=== PATIENT | female | born 1970 | race American Indian/Alaskan Native ===

== ENCOUNTER 2016-08-02 23:55 | Emergency (ER) | payer SELFPAY ==
[2016-08-03 03:55] LABS: Hematocrit 41.5 % (30.3-42.9); Hemoglobin 13.3 gm/dl (10.1-14.3); Mean Corpuscular HGB Conc 32 % (30-34); Mean Corpuscular Hemoglobin 28 pg (28-32); Mean Corpuscular Volume 86 fl (79-97); Platelet Count 321 K/mm3 (140-440); Red Blood Count 4.81 M/mm3 (3.65-5.03); Red Cell Distribution Width 14.4 % (13.2-15.2); White Blood Count 9.4 K/mm3 (4.5-11.0)
[2016-08-03 04:19] LABS: Anion Gap 23 mmol/L; Blood Urea Nitrogen 5 mg/dL (7-17); Calcium 9.1 mg/dL (8.4-10.2); Carbon Dioxide 21 mmol/L (22-30); Chloride 93.7 mmol/L (98-107); Glucose 284 mg/dL (65-100); Potassium 3.7 mmol/L (3.6-5.0); Sodium 134 mmol/L (137-145)
[2016-08-03] MEDS ORDERED: NORCO 5/325 PO ONE (04:42)
--- NOTE | 2016-08-03 04:46 | Emergency Department Report ---
HPI - General Chief Complaint: Extremity Injury, Lower Time Seen by Provider: 08/03/16 04:39 - HPI HPI: Patient is a 45 year old female with a history of diabetes mellitus 2 on insulin who presents to the ED complaining of left leg tingling times this morning. She states after she got out of the shower she started to experience tingling sharp type sensation on her lower left leg anteriorly going down to her foot. Patient's that she took her insulin this morning. Patient states she had no loss of sensation on her feet. 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 Patient denies fever/chills/nausea/vomiting/abdominal pain/chest pain shortness of breath/difficulty breathing/headache/dizziness/diarrhea. ED Past Medical Hx - Past Medical History Previous Medical History?: Yes Hx Hypertension: Yes Hx Diabetes: Yes Hx Asthma: Yes - Surgical History Past Surgical History?: No - Social History Smoking Status: Never Smoker Substance Use Type: None - Medications Home Medications: Home Medications Medication Instructions Recorded Confirmed Last Taken Type Albuterol Sulfate [Ventolin HFA] 2 puff IH Q4H PRN #1 hfa.aer.ad 05/12/15 Unknown Rx Lisinopril [Zestril TAB] 10 mg PO QDAY #30 tablet 05/12/15 12/10/15 Unknown Rx ALBUTEROL NEB's [Proventil 0.083% 2.5 mg IH Q4H PRN #25 neb 12/11/15 Unknown Rx NEBS] Insulin Glargine [Lantus VIAL] 5 units SUB-Q QAMDIAB #1 vial 12/11/15 Unknown Rx Ibuprofen [Motrin] 800 mg PO Q8HR PRN #40 tablet 08/03/16 Unknown Rx traMADol [Ultram 50 MG tab] 50 mg PO Q6HR PRN #24 tablet 08/03/16 Unknown Rx ED Review of Systems ROS: Stated complaint: LT LEG NUMBNESS Other details as noted in HPI Constitutional: denies: chills, fever Eyes: denies: eye pain, eye discharge, vision change, other ENT: denies: ear pain, throat pain, dental pain, hearing loss, epistaxis, congestion Respiratory: denies: cough, shortness of breath, wheezing Cardiovascular: denies: chest pain, palpitations Endocrine: no symptoms reported Gastrointestinal: denies: abdominal pain, nausea, vomiting, diarrhea, constipation, melena Genitourinary: denies: urgency, dysuria, frequency, hematuria, discharge Musculoskeletal: denies: back pain, joint swelling, arthralgia Skin: denies: rash, lesions Neurological: denies: headache, weakness, numbness, paresthesias, confusion, abnormal gait Psychiatric: denies: anxiety, depression Hematological/Lymphatic: denies: easy bleeding, easy bruising Physical Exam - Physical Exam Vital Signs: Vital Signs 08/03/16 08/03/16 00:49 02:56 Temperature 99.0 F 99.0 F Pulse Rate 107 H 107 H Respiratory 20 20 Rate Blood Pressure 155/84 Blood Pressure 155/84 [Left] O2 Sat by Pulse 99 99 Oximetry Physical Exam: GENERAL: Alert and oriented x3, no apparent distress, Normal Gait, atraumatic. HEAD: Head is normocephalic and a-traumatic. EYES: Extra ocular muscles are intact. Pupils are equal, round, and reactive to light and accommodation. EARS: symetrical, atraumatic, non tender, ear canal clear and moderate cerumen, tympanic membrance non inflamed. gross auditory nml bilaterally. NOSE: Nose symetrical, Nontender,Nares appeared normal. MOUTH:Mouth is well hydrated and without lesions. Tonsils nonerythematous or swollen, Uvula midline, Tongue not elevated. Mucous membranes are moist. Posterior pharynx clear, no exudate or lesions. Patent airways. NECK: Supple. Non edematous, No carotid bruits. No lymphadenopathy or thyromegaly. LUNGS: Symetrical with respiration, No wheezing, no rales or crackles, CTAB. HEART: S1, S2 present, regular rate and rhythm without murmur, no rubs, no gallops. ABDOMEN: No organomegaly was noted,Positive bowel sounds, soft, and non- distended. . Nontender to palpation on all Quadrants, NO CVA tenderness. EXTREMITIES/MUSCULOSKELETAL: No cyanosis, clubbing, rash, lesions or edema. Full ROM bilaterally. LE Pulses 2+ bilaterally. LE 5+ strength bilaterally, no calf tenderness bilaterally. Homans sign negative. Straight leg test negative. No ulcers visualized bilaterally. NEUROLOGIC: No focal Deficit, Cranial nerves II through XII are grossly intact. No loss of sensation, SKIN: Warm and dry, No lesions, No ulceration or induration present. ED Course Vital Signs 08/03/16 08/03/16 00:49 02:56 Temperature 99.0 F 99.0 F Pulse Rate 107 H 107 H Respiratory 20 20 Rate Blood Pressure 155/84 Blood Pressure 155/84 [Left] O2 Sat by Pulse 99 99 Oximetry ED Medical Decision Making - Lab Data Result diagrams: 08/03/16 03:37 08/03/16 03:37 - Medical Decision Making 45-year-old female presents with diabetic neuropathy. ED course: She received 2 tabs of [place] for pain. CBC within normal limits. BMP shows hyperglycemia, hyponatremia, hypokalemia. Discussed findings with patient. 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 Discussed with patient risk factors of uncontrolled diabetes and diabetic neuropathy as one of them. Discussed the patient is insulin is not sufficient enough to manage her blood sugars she is given either referral to primary care and might need a dose change. Patient states she usually hasn't been able to get her blood sugar below 200. Discussed with patient follow-up is necessary. Patient's vital signs stable. Patient has no respiratory or acute distress. Critical care attestation.: If time is entered above; I have spent that time in minutes in the direct care of this critically ill patient, excluding procedure time. ED Disposition Clinical Impression: Diabetic nephropathy Qualifiers: Diabetes mellitus type: type 2 Qualified Code(s): E11.21 - Type 2 diabetes mellitus with diabetic nephropathy Disposition: DISCHARGED TO HOME OR SELFCARE Is pt being admited?: No Does the pt Need Aspirin: No Condition: Stable Instructions: Diabetes Mellitus Type 2 in Adults (ED), Diabetic Neuropathy (ED) Prescriptions: Ibuprofen [Motrin] 800 mg PO Q8HR PRN #40 tablet PRN Reason: Pain traMADol [Ultram 50 MG tab] 50 mg PO Q6HR PRN #24 tablet PRN Reason: Pain Referrals: PRIMARY CARE, [Primary Care Provider] - 3-5 Days KAREN CHOI MD [Referring] - 3-5 Days TIFFANY CONSTANTINO MD [Staff Physician] - 3-5 Days JULIANNE ZARATE MD [Staff Physician] - 3-5 Days RNE LANDEROS MD [Staff Physician] - 3-5 Days [facility] [Outside] - 3-5 Days Forms: Work/School Release Form(ED) Time of Disposition: 04:59
[2016-08-03 04:54] VITALS: BP 148/86
== END 2016-08-03 05:13 | disposition home or self-care (01) ==
LOC: ED 23:55
DX: E11.21 Type 2 diabetes mellitus with diabetic nephropathy (principal); J45.909 Unspecified asthma, uncomplicated; I10 Essential (primary) hypertension; Z79.4 Long term (current) use of insulin; Z79.1 Long term (current) use of non-steroidal anti-inflammatories (NSAID); Z79.899 Other long term (current) drug therapy
CPT/HCPCS: 36415; 80048; 82962; 85027; 99283

== ENCOUNTER 2017-01-12 15:32 | Emergency (ER) | payer SELFPAY ==
[2017-01-12 15:44] VITALS: BP 126/80
--- NOTE | 2017-01-12 15:52 | Emergency Department Report ---
ED General Adult HPI - General Chief complaint: Medical Clearance Stated complaint: MED REFILL Time Seen by Provider: 01/12/17 15:40 Source: patient Mode of arrival: Ambulatory Limitations: No Limitations - History of Present Illness Initial comments: PT states she is out of albuterol solution for her neb. PT states she has been getting low and trying to space out her treatments. PT denies sob or wheezing. PT states she just needs her medication prn. Complaint: medication refill -: Gradual Severity scale (0 -10): 0 Improves with: medication (helps with her asthma ) Treatments Prior to Arrival: none - Related Data Previous Rx's Medication Instructions Recorded Last Taken Type Lisinopril [Zestril TAB] 10 mg PO QDAY #30 tablet 05/12/15 Unknown Rx Insulin Glargine [Lantus VIAL] 5 units SUB-Q QAMDIAB #1 vial 12/11/15 Unknown Rx Ibuprofen [Motrin] 800 mg PO Q8HR PRN #40 tablet 08/03/16 Unknown Rx traMADol [Ultram 50 MG tab] 50 mg PO Q6HR PRN #24 tablet 08/03/16 Unknown Rx Albuterol Sulfate [Ventolin HFA] 2 puff IH Q4H PRN #1 hfa.aer.ad 08/08/16 Unknown Rx Prednisone [predniSONE 10 mg 10 mg PO .TAPER #1 tab.ds.pk 08/08/16 Unknown Rx (6-Day Pack, 21 Tabs)] Promethazine /Codeine 5 ml PO Q6H PRN #100 ml 08/08/16 Unknown Rx [Phenergan/Codeine 6.25-10 mg/5 ml] ALBUTEROL NEB's [Proventil 0.083% 2.5 mg IH QID PRN #25 neb 01/12/17 Unknown Rx NEBS] Allergies Allergy/AdvReac Type Severity Reaction Status Date / Time No Known Allergies Allergy Verified 03/28/15 14:41 ED Review of Systems ROS: Stated complaint: MED REFILL Other details as noted in HPI Comment: All other systems reviewed and negative Constitutional: denies: chills, fever Respiratory: denies: cough, shortness of breath, SOB with exertion, SOB at rest , wheezing Cardiovascular: denies: chest pain, syncope Endocrine: other (pt states she has not checked her bg recently and she would like to know what it is ). denies: increased thirst, increased urine Gastrointestinal: denies: abdominal pain, nausea, vomiting ED Past Medical Hx - Past Medical History Hx Hypertension: Yes Hx Diabetes: Yes Hx Asthma: Yes - Social History Smoking Status: Never Smoker Substance Use Type: None - Medications Home Medications: Home Medications Medication Instructions Recorded Confirmed Last Taken Type Lisinopril [Zestril TAB] 10 mg PO QDAY #30 tablet 05/12/15 08/08/16 Unknown Rx Insulin Glargine [Lantus VIAL] 5 units SUB-Q QAMDIAB #1 vial 12/11/15 08/08/16 Unknown Rx Ibuprofen [Motrin] 800 mg PO Q8HR PRN #40 tablet 08/03/16 08/08/16 Unknown Rx traMADol [Ultram 50 MG tab] 50 mg PO Q6HR PRN #24 tablet 08/03/16 08/08/16 Unknown Rx Albuterol Sulfate [Ventolin HFA] 2 puff IH Q4H PRN #1 hfa.aer.ad 08/08/16 Unknown Rx Prednisone [predniSONE 10 mg 10 mg PO .TAPER #1 tab.ds.pk 08/08/16 Unknown Rx (6-Day Pack, 21 Tabs)] Promethazine /Codeine 5 ml PO Q6H PRN #100 ml 08/08/16 Unknown Rx [Phenergan/Codeine 6.25-10 mg/5 ml] ALBUTEROL NEB's [Proventil 0.083% 2.5 mg IH QID PRN #25 neb 01/12/17 Unknown Rx NEBS] ED Physical Exam - General Limitations: No Limitations General appearance: alert, in no apparent distress, obese - Head Head exam: Present: atraumatic, normocephalic, normal inspection - Eye Eye exam: Present: normal appearance, PERRL, EOMI. Absent: conjunctival injection - ENT ENT exam: Present: normal exam, normal external ear exam - Neck Neck exam: Present: normal inspection, full ROM - Respiratory Respiratory exam: Present: normal lung sounds bilaterally. Absent: respiratory distress, wheezes, rales, rhonchi, stridor, chest wall tenderness, accessory muscle use, decreased breath sounds - Cardiovascular Cardiovascular Exam: Present: regular rate, normal rhythm, normal heart sounds - GI/Abdominal GI/Abdominal exam: Present: soft. Absent: tenderness - Extremities Exam Extremities exam: Present: normal inspection, full ROM - Back Exam Back exam: Present: normal inspection, full ROM - Neurological Exam Neurological exam: Present: alert, oriented X3, normal gait - Psychiatric Psychiatric exam: Present: normal affect, normal mood - Skin Skin exam: Present: warm, dry, intact, normal color ED Course Vital Signs 01/12/17 15:40 Temperature 98.5 F Pulse Rate 99 H Respiratory 20 Rate Blood Pressure 126/80 O2 Sat by Pulse 100 Oximetry - Reevaluation(s) Reevaluation #1: 01/12/17 16:01 PT aware of her bg. PT aware she will need to follow up with PCP for the detention management of her chronic conditions. PT verbalizes understanding. - Pulse Oximetry Interpretation Digit-Finger Initial Pulse Oximetry Readin Actions Taken: none ED Medical Decision Making - Differential Diagnosis dm, asthma Critical Care Time: No Critical care attestation.: If time is entered above; I have spent that time in minutes in the direct care of this critically ill patient, excluding procedure time. ED Disposition Clinical Impression: Asthma Qualifiers: Asthma severity: mild intermittent Asthma complication type: uncomplicated Qualified Code(s): J45.20 - Mild intermittent asthma, uncomplicated Disposition: DC-01 TO HOME OR SELFCARE Is pt being admited?: No Does the pt Need Aspirin: No Condition: Stable Instructions: Asthma (ED), How to Check Your Blood Sugar (ED), Meal Planning with Diabetes Exchanges (DC) Additional Instructions: Follow up with PCP in 3-5 days Return to ED if Short of breath, chest pain or concerns Follow an ADA diet Prescriptions: ALBUTEROL NEB's [Proventil 0.083% NEBS] 2.5 mg IH QID PRN #25 neb PRN Reason: Wheezing Referrals: PRIMARY CARE, [Primary Care Provider] - 3-5 Days Time of Disposition: 16:04
== END 2017-01-12 16:22 | disposition home or self-care (01) ==
LOC: ED 15:32
DX: J45.20 Mild intermittent asthma, uncomplicated (principal); I10 Essential (primary) hypertension; E11.9 Type 2 diabetes mellitus without complications; Z79.4 Long term (current) use of insulin
CPT/HCPCS: 82962; 99282

== ENCOUNTER 2017-02-04 18:01 | Inpatient (IN) | payer SELFPAY ==
[2017-02-04] MEDS ORDERED: PROVENTIL IH ONE ×2 (18:18→21:36)
[2017-02-04] MEDS ORDERED: ATROVENT IH ONE ×2 (18:19→21:36)
[2017-02-04 18:57] LABS: Eosinophils % (Auto) 4.2 % (0.0-4.3); Hematocrit 40.6 % (30.3-42.9); Hemoglobin 13.5 gm/dl (10.1-14.3); Mean Corpuscular HGB Conc 33 % (30-34); Mean Corpuscular Hemoglobin 30 pg (28-32); Mean Corpuscular Volume 89 fl (79-97); Platelet Count 300 K/mm3 (140-440); Red Blood Count 4.55 M/mm3 (3.65-5.03); Red Cell Distribution Width 13.4 % (13.2-15.2); White Blood Count 9.4 K/mm3 (4.5-11.0)
[2017-02-04] MEDS ORDERED: MAGNESIUM SULFATE 2GM/50ML 2 GM/50 ML BAG IV ONE (18:59)
[2017-02-04] MEDS ORDERED: FIORICET PO ONE (19:02)
[2017-02-04] MEDS ORDERED: TESSALON PERLES PO ONE (19:02)
--- NOTE | 2017-02-04 19:05 | Emergency Department Report ---
HPI - General Chief Complaint: Dyspnea/Respdistress Time Seen by Provider: 02/04/17 18:52 - HPI HPI: Room 22 The pt is a 46 y/o F p/w a cc of SOB. 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 The pt states for over 1 week she has had a nonproductive cough, SOB and chest congestion. The pt states she's been wheezing for 1 week and 2 nebs at home did not help. Pt denies h/o F or rhinnorhea. Pt c/o MENJIVAR from frequent coughing ED Past Medical Hx - Past Medical History Hx Hypertension: Yes Hx Diabetes: Yes Hx Asthma: Yes - Surgical History Past Surgical History?: No - Family History Family history: no significant - Social History Smoking Status: Never Smoker Substance Use Type: Alcohol (occ) - Medications Home Medications: Home Medications Medication Instructions Recorded Confirmed Last Taken Type Lisinopril [Zestril TAB] 10 mg PO QDAY #30 tablet 05/12/15 08/08/16 Unknown Rx Insulin Glargine [Lantus VIAL] 5 units SUB-Q QAMDIAB #1 vial 12/11/15 08/08/16 Unknown Rx Ibuprofen [Motrin] 800 mg PO Q8HR PRN #40 tablet 08/03/16 08/08/16 Unknown Rx traMADol [Ultram 50 MG tab] 50 mg PO Q6HR PRN #24 tablet 08/03/16 08/08/16 Unknown Rx Albuterol Sulfate [Ventolin HFA] 2 puff IH Q4H PRN #1 hfa.aer.ad 08/08/16 Unknown Rx Prednisone [predniSONE 10 mg 10 mg PO .TAPER #1 tab.ds.pk 08/08/16 Unknown Rx (6-Day Pack, 21 Tabs)] Promethazine /Codeine 5 ml PO Q6H PRN #100 ml 08/08/16 Unknown Rx [Phenergan/Codeine 6.25-10 mg/5 ml] ALBUTEROL NEB's [Proventil 0.083% 2.5 mg IH QID PRN #25 neb 01/12/17 Unknown Rx NEBS] ED Review of Systems ROS: Stated complaint: ANGELITA Other details as noted in HPI Comment: All other systems reviewed and negative Constitutional: denies: fever Eyes: denies: eye pain, eye discharge, vision change ENT: congestion Respiratory: cough, shortness of breath, wheezing Cardiovascular: denies: chest pain, palpitations Endocrine: no symptoms reported Gastrointestinal: denies: abdominal pain, nausea, diarrhea Genitourinary: denies: urgency, dysuria, discharge Musculoskeletal: denies: back pain, joint swelling, arthralgia Skin: denies: rash, lesions Neurological: headache Psychiatric: denies: anxiety, depression Hematological/Lymphatic: denies: easy bleeding, easy bruising Physical Exam - Physical Exam Vital Signs: Vital Signs 02/04/17 18:09 Temperature 99.3 F Pulse Rate 124 H Respiratory 32 H Rate Blood Pressure 117/94 O2 Sat by Pulse 94 Oximetry Physical Exam: GEN: WD, WN F lying on stretcher receiving nebulizer HEENT: normocephalic, atraumatic PULM: Wheezing diffusely CV: rrr, no m/r/g ABD: s, nt, nd Neuro: GCS 15 Ext: no deformity ED Course Vital Signs 02/04/17 18:09 Temperature 99.3 F Pulse Rate 124 H Respiratory 32 H Rate Blood Pressure 117/94 O2 Sat by Pulse 94 Oximetry - Reevaluation(s) Reevaluation #1: 02/05/17 00:04 pt still wheezing. Pt agrees to be admitted to the hospital for now ED Medical Decision Making - Lab Data Result diagrams: 02/04/17 18:43 02/04/17 18:43 Laboratory Tests 02/04/17 02/04/17 02/04/17 18:43 18:43 18:43 WBC 9.4 RBC 4.55 Hgb 13.5 Hct 40.6 MCV 89 MCH 30 MCHC 33 RDW 13.4 Plt Count 300 Lymph % (Auto) 23.8 [place] % (Auto) 7.4 H Eos % (Auto) 4.2 Baso % (Auto) 1.0 Lymph # 2.2 [place] # 0.7 Eos # 0.4 Baso # 0.1 Seg Neutrophils % 63.6 Seg Neutrophils # 6.0 PT 13.1 INR 0.95 Sodium 135 L Potassium 3.8 Chloride 93.6 L Carbon Dioxide 21 L Anion Gap 24 BUN 4 L Creatinine 0.5 L Estimated GFR > 60 BUN/Creatinine Ratio 8.00 Glucose 175 H Calcium 9.4 Troponin T < 0.010 - EKG Data -: EKG Interpreted by Me EKG shows normal: sinus rhythm Rate: tachycardia (119 bpm) - EKG Data When compared to previous EKG there are: previous EKG unavailable - Radiology Data Radiology results: image reviewed (CXR) interpreted by me: CXR- no focal infiltrates, no PTX - Differential Diagnosis URI, acute asthma exacerbation Critical care attestation.: If time is entered above; I have spent that time in minutes in the direct care of this critically ill patient, excluding procedure time. ED Disposition Clinical Impression: Asthma with exacerbation, Shortness of breath Disposition: DC-09 OP ADMIT IP TO THIS HOSP Is pt being admited?: Yes Does the pt Need Aspirin: Yes Condition: Fair Time of Disposition: 00:05 (Hospitalist paged)
[2017-02-04 19:07] LABS: INR 0.95 (0.87-1.13)
[2017-02-04 19:20] LABS: Anion Gap 24 mmol/L; Blood Urea Nitrogen 4 mg/dL (7-17); Calcium 9.4 mg/dL (8.4-10.2); Carbon Dioxide 21 mmol/L (22-30); Chloride 93.6 mmol/L (98-107); Glucose 175 mg/dL (65-100); Potassium 3.8 mmol/L (3.6-5.0); Sodium 135 mmol/L (137-145)
[2017-02-04] MEDS ORDERED: XOPENEX IH ONE (23:05)
[2017-02-05] MEDS ORDERED: XOPENEX IH ONE (00:23)
[2017-02-05] MEDS ORDERED: TYLENOL PO PRN (01:51)
[2017-02-05] MEDS ORDERED: XOPENEX IH PRN (01:52)
[2017-02-05] MEDS ORDERED: ATIVAN IV ONE (01:54)
[2017-02-05] MEDS ORDERED: ROBITUSSIN DM PO PRN (02:01)
[2017-02-05] MEDS ORDERED: D50W (25GM) Syringe IV PRN (02:15)
[2017-02-05] MEDS ORDERED: MOTRIN PO PRN (02:16)
[2017-02-05] MEDS: PROVENTIL IH PRN ×2 (04:45→07:44)
--- NOTE | 2017-02-05 07:35 | XRay Report ---
AP CHEST: HISTORY: Short of breath AP view of the chest demonstrates a normal mediastinal and cardiac contour with clear lungs and normal bony and soft tissue structures. IMPRESSION: Unremarkable AP chest.
[2017-02-05] MEDS ORDERED: NON-FORMULARY (Insulin Glargine 5 UNITS) SUB-Q SCH (08:00)
--- NOTE | 2017-02-05 08:37 | History and Physical Report ---
CHIEF COMPLAINT: Shortness of breath. Other complaints include wheezing and cough. 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 The patient also has a wheezing. There is no history of fever or chills. There is no history of chest pain and also denies history of dizziness and presented to the Emergency Room. PAST MEDICAL HISTORY: Pertinent for hypertension, diabetes mellitus, and asthma. PAST SURGICAL HISTORY: Unremarkable. FAMILY HISTORY: Family history is noncontributory. SOCIAL HISTORY: The patient lives with family. Drinks alcohol occasionally and does not smoke. MEDICATIONS: The patient is on lisinopril, Zestril 10 mg by mouth daily. Also, the patient is on Lantus insulin 5 units subq q.a.m. . The patient is on Motrin 800 mg every 8 hours as needed for pain and tramadol 50 mg every 6 hours as needed for pain as well. The patient is on Ventolin 2 puffs inhalation q. 4 hours as needed and prednisone 10 mg p.o. tapering dose and the patient is on Phenergan/codeine 5 mL by mouth every 6 hours as needed and albuterol nebulizer q.i.d. as needed for shortness of breath. ALLERGIES: There are no known drug allergies. REVIEW OF SYSTEMS: CONSTITUTIONAL: There is no fever, no chills, no diaphoresis. HEENT: There is headache with no sore throat. CARDIOVASCULAR SYSTEM: There is no chest pain, orthopnea. RESPIRATORY SYSTEM: Shortness of breath is present. Cough present. Wheezing present. GASTROINTESTINAL SYSTEM: There is no nausea, no vomiting, no abdominal pain, diarrhea or constipation. NEUROLOGICAL SYSTEM: There is no numbness, no dizziness, no altered mental status. MUSCULOSKELETAL SYSTEM: Show no joint swelling or tenderness. DERMATOLOGICAL SYSTEM: Show no skin rash. GENITOURINARY SYSTEM: Show no dysuria, hematuria, or flank pain. Rest of system review is normal. PHYSICAL EXAMINATION: GENERAL: At the time of exam, the patient was found to be alert, oriented x 3 and not in acute distress. VITAL SIGNS: Shows normal temperature with normal pulse , respirations of 24, and O2 sat of 95% on room air. HEENT: Eyes show pupils to be equal, round, reactive to light and accommodation. Extraocular muscles are intact. NECK: Supple with no JVD or carotid bruit. CARDIOVASCULAR SYSTEM: Show first and second heart sounds with no gallops or murmurs. RESPIRATORY SYSTEM: Show reduced air entry on both sides of the lung with expiratory wheezing with no use of accessory respiratory muscles. GASTROINTESTINAL SYSTEM: Show abdomen to be full, soft, nontender with no organomegaly elicited. Bowel sounds normal. NEUROLOGICAL SYSTEM: Show no focal deficit. MUSCULOSKELETAL SYSTEM: Show no joint swelling or tenderness. DERMATOLOGICAL SYSTEM: Show no skin rash. GENITOURINARY SYSTEM: Show no costovertebral angle tenderness. PERTINENT LABORATORY AND IMAGING STUDIES: The patient's CBC came back unremarkable except for elevated monocyte count of 7.4 on CBC differential. Coagulation study was unremarkable. Chemistry shows slightly decreased sodium of 135 with a low chloride of 93.6 and low CO2 of 21. BUN is low with a value of 4, creatinine is low with a value of 0.5 and renal function test shows normal GFR. Troponin level was normal. IMAGING STUDIES: The patient had chest x-ray done that shows no acute cardiopulmonary lesions. DIAGNOSIS: Asthma exacerbation. PLAN: The patient will be admitted to medical floor on telemetry. Vital signs will be monitored by telemetry protocol. The patient will be on Xopenex nebulizer q. 6 hours as needed for shortness of breath or wheezing and will be on IV Levaquin 750 mg daily. The patient will also be on IV Solu-Medrol 60 mg q. 8 hours and will be on Tylenol 650 mg by mouth every 4 hours for fever and headache, and DVT prophylaxis will be through heparin 5000 units subq q. 12 hours. The patient will be on oxygen by nasal cannula at a rate of 2 liter per minute. The patient's home medications will be reconciled and started accordingly. The patient will also be on Robitussin-DM 10 mL by mouth every 4 hours as needed for cough. The patient's diet will be consistent carbohydrate diet and 2 gram sodium diet. The patient will have Accu-Chek a.c. and q.h.s. followed by low-dose sliding scale using regular insulin. JOB# [id number] OCN/NTS MTDD
[2017-02-05] MEDS: ZESTRIL PO SCH (09:58)
[2017-02-05] MEDS: LEVAQUIN 750MG/150ML 750 MG/150 ML BAG IV SCH (10:01)
[2017-02-05] MEDS: HEPARIN SUB-Q SCH ×2 (10:01→22:48)
[2017-02-05] MEDS: LEVEMIR SUB-Q SCH (10:03)
[2017-02-05] MEDS: ROBITUSSIN DM PO SCH ×4 (10:28→22:48)
[2017-02-05] MEDS: DUONEB *Not for PRN Use IH SCH ×5 (10:33→23:24)
[2017-02-06] MEDS: ROBITUSSIN DM PO SCH ×6 (03:13→21:35)
[2017-02-06] MEDS: DUONEB *Not for PRN Use IH SCH ×7 (04:06→23:05)
[2017-02-06 10:39] LABS: Hematocrit 43.5 % (30.3-42.9); Hemoglobin 14.4 gm/dl (10.1-14.3); Mean Corpuscular HGB Conc 33 % (30-34); Mean Corpuscular Hemoglobin 30 pg (28-32); Mean Corpuscular Volume 90 fl (79-97); Platelet Count 331 K/mm3 (140-440); Red Blood Count 4.86 M/mm3 (3.65-5.03); Red Cell Distribution Width 13.9 % (13.2-15.2); White Blood Count 17.6 K/mm3 (4.5-11.0)
[2017-02-06] MEDS: ZESTRIL PO SCH (10:40)
[2017-02-06] MEDS: LEVAQUIN 750MG/150ML 750 MG/150 ML BAG IV SCH (10:40)
[2017-02-06] MEDS: LEVEMIR SUB-Q SCH (10:57)
[2017-02-06 11:00] LABS: Anion Gap 24 mmol/L; Blood Urea Nitrogen 15 mg/dL (7-17); Calcium 9.2 mg/dL (8.4-10.2); Carbon Dioxide 18 mmol/L (22-30); Chloride 91.6 mmol/L (98-107); Glucose 328 mg/dL (65-100); Potassium 5.6 mmol/L (3.6-5.0); Sodium 128 mmol/L (137-145)
[2017-02-06] MEDS ORDERED: LASIX IV NR (11:30)
[2017-02-06 12:03] LABS: Basophils % (Manual) 0 % (0.0-1.8); Blastocytes % (Manual) 0 %; Eosinophils % (Manual) 0 % (0.0-4.3)
[2017-02-06 12:04] LABS: Anisocytosis Few; Diff Status Complete
[2017-02-06] MEDS: ATIVAN PO PRN (13:19)
[2017-02-06] MEDS ORDERED: LEVEMIR SUB-Q SCH (13:25)
[2017-02-06] MEDS ORDERED: KIONEX PO ONE ×2 (13:31→17:00)
--- NOTE | 2017-02-06 13:44 | Progress Note ---
Assessment and Plan Assessment and plan: Asthma exacerbation - Patient is on Solu-Medrol, DuoNeb's, oxygen support, Levaquin - CTA chest is pending Diabetes mellitus with hyperglycemia - Worsened by Solu-Medrol - On sliding scale insulin, Levemir - We will adjust the dose of insulin as needed Morbid obesity - Counseled about diet and exercise Hyperkalemia - Kyexalate was given - We will monitor BMP tomorrow Leukocytosis -Secondary to Solu-Medrol DVT prophylaxis -Lovenox Disposition -Continue inpatient care History Interval history: Patient was seen and evaluated this morning, she still has shortness of breath, but getting better from yesterday. Hospitalist Physical - Physical exam Narrative exam: Not in cardiopulmonary distress. The patient appeared well nourished and normally developed. Vital signs as documented. Head exam is unremarkable. No scleral icterus . Neck is without jugular venous distension, thyromegaly, or carotid bruits. Lungs significant for wheezing all over the chest. Cardiac exam reveals regular rate and Rhythm. First and second heart sounds normal. No murmurs, rubs or gallops. Abdominal exam reveals normal bowel sounds, no masses. Extremities are nonedematous and both femoral and pedal pulses are normal. 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 No focal weakness. - Constitutional Vitals: Temp Pulse Resp BP Pulse Ox 98.4 F 119 H 20 131/77 98 02/06/17 08:00 02/06/17 11:10 02/06/17 11:10 02/06/17 10:40 02/06/17 08:00 Results - Labs CBC & Chem 7: 02/06/17 10:14 02/06/17 10:14 Labs: Laboratory Last Values WBC 17.6 K/mm3 (4.5-11.0) H 02/06/17 10:14 RBC 4.86 M/mm3 (3.65-5.03) 02/06/17 10:14 Hgb 14.4 gm/dl (10.1-14.3) H 02/06/17 10:14 Hct 43.5 % (30.3-42.9) H 02/06/17 10:14 MCV 90 fl (79-97) 02/06/17 10:14 MCH 30 pg (28-32) 02/06/17 10:14 MCHC 33 % (30-34) 02/06/17 10:14 RDW 13.9 % (13.2-15.2) 02/06/17 10:14 Plt Count 331 K/mm3 (140-440) 02/06/17 10:14 Lymph % (Auto) 23.8 % (13.4-35.0) 02/04/17 18:43 [place] % (Auto) 7.4 % (0.0-7.3) H 02/04/17 18:43 Eos % (Auto) 4.2 % (0.0-4.3) 02/04/17 18:43 Baso % (Auto) 1.0 % (0.0-1.8) 02/04/17 18:43 Lymph # 2.2 K/mm3 (1.2-5.4) 02/04/17 18:43 [place] # 0.7 K/mm3 (0.0-0.8) 02/04/17 18:43 Eos # 0.4 K/mm3 (0.0-0.4) 02/04/17 18:43 Baso # 0.1 K/mm3 (0.0-0.1) 02/04/17 18:43 Add Manual Diff Complete 02/06/17 10:14 Total Counted 100 02/06/17 10:14 Seg Neutrophils % Band Cutting Machine Operator 02/06/17 10:14 Seg Neuts % (Manual) 91.0 % (40.0-70.0) H 02/06/17 10:14 Band Neutrophils % 2.0 % 02/06/17 10:14 Lymphocytes % (Manual) 3.0 % (13.4-35.0) L 02/06/17 10:14 Reactive Lymphs % (Man) 0 % 02/06/17 10:14 Monocytes % (Manual) 4.0 % (0.0-7.3) 02/06/17 10:14 Eosinophils % (Manual) 0 % (0.0-4.3) 02/06/17 10:14 Basophils % (Manual) 0 % (0.0-1.8) 02/06/17 10:14 Metamyelocytes % 0 % 02/06/17 10:14 Myelocytes % 0 % 02/06/17 10:14 Promyelocytes % 0 % 02/06/17 10:14 Blast Cells % 0 % 02/06/17 10:14 Nucleated RBC % Not Reportable 02/06/17 10:14 Seg Neutrophils # 6.0 K/mm3 (1.8-7.7) 02/04/17 18:43 Seg Neutrophils # Man 16.0 K/mm3 (1.8-7.7) H 02/06/17 10:14 Band Neutrophils # 0.4 K/mm3 02/06/17 10:14 Lymphocytes # (Manual) 0.5 K/mm3 (1.2-5.4) L 02/06/17 10:14 Abs React Lymphs (Man) 0.0 K/mm3 02/06/17 10:14 Monocytes # (Manual) 0.7 K/mm3 (0.0-0.8) 02/06/17 10:14 Eosinophils # (Manual) 0.0 K/mm3 (0.0-0.4) 02/06/17 10:14 Basophils # (Manual) 0.0 K/mm3 (0.0-0.1) 02/06/17 10:14 Metamyelocytes # 0.0 K/mm3 02/06/17 10:14 Myelocytes # 0.0 K/mm3 02/06/17 10:14 Promyelocytes # 0.0 K/mm3 02/06/17 10:14 Blast Cells # 0.0 K/mm3 02/06/17 10:14 WBC Morphology Not Reportable 02/06/17 10:14 Hypersegmented Neuts Not Reportable 02/06/17 10:14 Hyposegmented Neuts Not Reportable 02/06/17 10:14 Hypogranular Neuts Not Reportable 02/06/17 10:14 Smudge Cells Not Reportable 02/06/17 10:14 Toxic Granulation Not Reportable 02/06/17 10:14 Toxic Vacuolation Not Reportable 02/06/17 10:14 Dohle Bodies Not Reportable 02/06/17 10:14 Pelger-Huet Anomaly Not Reportable 02/06/17 10:14 Albert Rods Not Reportable 02/06/17 10:14 Platelet Estimate Not Reportable 02/06/17 10:14 Clumped Platelets Not Reportable 02/06/17 10:14 Plt Clumps, EDTA Not Reportable 02/06/17 10:14 Large Platelets Not Reportable 02/06/17 10:14 Giant Platelets Not Reportable 02/06/17 10:14 Platelet Satelliting Not Reportable 02/06/17 10:14 Plt Morphology Comment Not Reportable 02/06/17 10:14 RBC Morphology Not Reportable 02/06/17 10:14 Dimorphic RBCs Not Reportable 02/06/17 10:14 Polychromasia Not Reportable 02/06/17 10:14 Hypochromasia Not Reportable 02/06/17 10:14 Poikilocytosis Not Reportable 02/06/17 10:14 Anisocytosis Few 02/06/17 10:14 Microcytosis Not Reportable 02/06/17 10:14 Macrocytosis Not Reportable 02/06/17 10:14 Spherocytes Not Reportable 02/06/17 10:14 Pappenheimer Bodies Not Reportable 02/06/17 10:14 Sickle Cells Not Reportable 02/06/17 10:14 Target Cells Not Reportable 02/06/17 10:14 Tear Drop Cells Not Reportable 02/06/17 10:14 Ovalocytes Not Reportable 02/06/17 10:14 Helmet Cells Not Reportable 02/06/17 10:14 [place] Bodies Not Reportable 02/06/17 10:14 [place] Rings Not Reportable 02/06/17 10:14 Jeol Cells Not Reportable 02/06/17 10:14 Bite Cells Not Reportable 02/06/17 10:14 Crenated Cell Not Reportable 02/06/17 10:14 Elliptocytes Not Reportable 02/06/17 10:14 Acanthocytes (Spur) Not Reportable 02/06/17 10:14 Rouleaux Not Reportable 02/06/17 10:14 Hemoglobin C Crystals Not Reportable 02/06/17 10:14 Schistocytes Not Reportable 02/06/17 10:14 Malaria parasites Not Reportable 02/06/17 10:14 Bernardo Bodies Not Reportable 02/06/17 10:14 Hem Pathologist Commnt No 02/06/17 10:14 PT 13.1 Sec. (12.2-14.9) 02/04/17 18:43 INR 0.95 (0.87-1.13) 02/04/17 18:43 Sodium 128 mmol/L (137-145) L D 02/06/17 10:14 Potassium 5.6 mmol/L (3.6-5.0) H D 02/06/17 10:14 Chloride 91.6 mmol/L (98-107) L 02/06/17 10:14 Carbon Dioxide 18 mmol/L (22-30) L 02/06/17 10:14 Anion Gap 24 mmol/L 02/06/17 10:14 BUN 15 mg/dL (7-17) 02/06/17 10:14 Creatinine 0.5 mg/dL (0.7-1.2) L 02/06/17 10:14 Estimated GFR > 60 ml/min 02/06/17 10:14 BUN/Creatinine Ratio 30.00 % 02/06/17 10:14 Glucose 328 mg/dL (65-100) H 02/06/17 10:14 POC Glucose 312 (70-105) H 02/06/17 12:07 Calcium 9.2 mg/dL (8.4-10.2) 02/06/17 10:14 Troponin T < 0.010 ng/mL (0.00-0.029) 02/04/17 18:43
[2017-02-06] MEDS ORDERED: NACL ONE (16:09)
[2017-02-06] MEDS: HEPARIN SUB-Q SCH ×2 (18:55→21:40)
--- NOTE | 2017-02-06 21:31 | Cat Scan Report ---
FINAL REPORT EXAM: CT ANGIO CHEST HISTORY: SOB COMPARISON: None available. TECHNIQUE: Contiguous axial images were obtained. Additional sagittal and coronal reformatted images were obtained. Administration of IV contrast given per institution protocol. Images submitted for interpretation. Max intensity projection images. 100 cc Omnipaque 350. FINDINGS: Heart normal in size. Thoracic aorta normal in caliber. No dissection. No pulmonary embolus. There is 1 borderline enlarged pretracheal lymph node measuring 1.7 x 0.9 centimeters. No enlarged intrathoracic or axillary lymph nodes otherwise. No pulmonary embolus. Mild bronchial wall thickening in the upper lungs. Small ground-glass opacity right upper lobe. Findings are concerning for bronchitis or viral pneumonitis. Small nodular ground-glass density at the posterior margin right upper lobe (series 3, image 42). No dense consolidation or effusion. Visualized upper abdomen is grossly unremarkable. Mild degenerative changes of the thoracic spine. IMPRESSION: No pulmonary embolus. Mild bronchial wall thickening ground-glass opacities in the right upper lobe concerning for bronchitis versus viral pneumonitis. No dense consolidation or effusion.
[2017-02-07] MEDS: ATIVAN PO PRN ×3 (00:18→23:10)
[2017-02-07] MEDS: ROBITUSSIN DM PO SCH ×6 (01:50→21:37)
[2017-02-07] MEDS: DUONEB *Not for PRN Use IH SCH ×5 (03:17→19:37)
[2017-02-07 05:39] LABS: Basophils % (Auto) 0.2 % (0.0-1.8); Eosinophils % (Auto) 0.1 % (0.0-4.3); Hematocrit 38.8 % (30.3-42.9); Mean Corpuscular HGB Conc 33 % (30-34); Mean Corpuscular Hemoglobin 30 pg (28-32); Mean Corpuscular Volume 89 fl (79-97); Platelet Count 291 K/mm3 (140-440); Red Blood Count 4.37 M/mm3 (3.65-5.03); Red Cell Distribution Width 13.5 % (13.2-15.2); White Blood Count 13.5 K/mm3 (4.5-11.0)
[2017-02-07 06:16] LABS: BUN/Creatinine Ratio 26.66; Blood Urea Nitrogen 16 mg/dL (7-17); Calcium 8.9 mg/dL (8.4-10.2); Carbon Dioxide 25 mmol/L (22-30); Glucose 373 mg/dL (65-100)
[2017-02-07 06:17] LABS: Chloride 91.3 mmol/L (98-107); Sodium 133 mmol/L (137-145)
[2017-02-07 06:35] LABS: Anion Gap 21 mmol/L; Potassium 4.1 mmol/L (3.6-5.0)
[2017-02-07] MEDS ORDERED: LASIX IV ONE (10:04)
[2017-02-07] MEDS: HEPARIN SUB-Q SCH ×3 (11:04→21:38)
[2017-02-07] MEDS: LEVAQUIN PO SCH (11:05)
[2017-02-07] MEDS: ZESTRIL PO SCH (11:06)
[2017-02-07] MEDS ORDERED: LEVEMIR SUB-Q SCH (13:39)
--- NOTE | 2017-02-07 13:46 | Progress Note ---
Assessment and Plan Assessment and plan: Asthma exacerbation - Patient is on Solu-Medrol, DuoNeb's, oxygen support, Levaquin IV - CTA chest : mild bronchial wall thickening ground-glass opacities in the RUL concerning bronchitis Vs Viral pneumonitis. Diabetes mellitus with hyperglycemia - Worsened by Solu-Medrol - On sliding scale insulin, Increase the dose of levemir - We will adjust the dose of insulin as needed Morbid obesity - Counseled about diet and exercise Hyperkalemia - Kyexalate was given - Potassium is normal today Leukocytosis -Secondary to Solu-Medrol -Show slight decrease in WBC DVT prophylaxis -Lovenox Disposition - Continue inpatient care, possible D/C tomorrow - Needs home O2 evaluation History Interval history: Patient was seen and evaluated this morning, she still has shortness of breath, but getting better from yesterday. Hospitalist Physical - Physical exam Narrative exam: Not in cardiopulmonary distress. The patient appeared well nourished and normally developed. Vital signs as documented. Head exam is unremarkable. No scleral icterus . Neck is without jugular venous distension, thyromegaly, or carotid bruits. Lungs significant for wheezing all over the chest. Cardiac exam reveals regular rate and Rhythm. First and second heart sounds normal. No murmurs, rubs or gallops. Abdominal exam reveals normal bowel sounds, no masses. Extremities are nonedematous and both femoral and pedal pulses are normal. RN SECURITY: Alert and oriented 3. No focal weakness. - Constitutional Vitals: Temp Pulse Resp BP Pulse Ox 98.3 F 95 H 20 139/74 94 02/07/17 05:22 02/07/17 10:00 02/07/17 08:56 02/07/17 08:56 02/07/17 08:56 Results - Labs CBC & Chem 7: 02/07/17 05:27 02/07/17 05:27 Labs: Laboratory Last Values WBC 13.5 K/mm3 (4.5-11.0) H 02/07/17 05:27 RBC 4.37 M/mm3 (3.65-5.03) 02/07/17 05:27 Hgb 13.0 gm/dl (10.1-14.3) 02/07/17 05:27 Hct 38.8 % (30.3-42.9) 02/07/17 05:27 MCV 89 fl (79-97) 02/07/17 05:27 MCH 30 pg (28-32) 02/07/17 05:27 MCHC 33 % (30-34) 02/07/17 05:27 RDW 13.5 % (13.2-15.2) 02/07/17 05:27 Plt Count 291 K/mm3 (140-440) 02/07/17 05:27 Lymph % (Auto) 6.8 % (13.4-35.0) L 02/07/17 05:27 [place] % (Auto) 5.4 % (0.0-7.3) 02/07/17 05:27 Eos % (Auto) 0.1 % (0.0-4.3) 02/07/17 05:27 Baso % (Auto) 0.2 % (0.0-1.8) 02/07/17 05:27 Lymph # 0.9 K/mm3 (1.2-5.4) L 02/07/17 05:27 [place] # 0.7 K/mm3 (0.0-0.8) 02/07/17 05:27 Eos # 0.0 K/mm3 (0.0-0.4) 02/07/17 05:27 Baso # 0.0 K/mm3 (0.0-0.1) 02/07/17 05:27 Add Manual Diff Complete 02/06/17 10:14 Total Counted 100 02/06/17 10:14 Seg Neutrophils % 87.5 % (40.0-70.0) H 02/07/17 05:27 Seg Neuts % (Manual) 91.0 % (40.0-70.0) H 02/06/17 10:14 Band Neutrophils % 2.0 % 02/06/17 10:14 Lymphocytes % (Manual) 3.0 % (13.4-35.0) L 02/06/17 10:14 Reactive Lymphs % (Man) 0 % 02/06/17 10:14 Monocytes % (Manual) 4.0 % (0.0-7.3) 02/06/17 10:14 Eosinophils % (Manual) 0 % (0.0-4.3) 02/06/17 10:14 Basophils % (Manual) 0 % (0.0-1.8) 02/06/17 10:14 Metamyelocytes % 0 % 02/06/17 10:14 Myelocytes % 0 % 02/06/17 10:14 Promyelocytes % 0 % 02/06/17 10:14 Blast Cells % 0 % 02/06/17 10:14 Nucleated RBC % Not Reportable 02/06/17 10:14 Seg Neutrophils # 11.9 K/mm3 (1.8-7.7) H 02/07/17 05:27 Seg Neutrophils # Man 16.0 K/mm3 (1.8-7.7) H 02/06/17 10:14 Band Neutrophils # 0.4 K/mm3 02/06/17 10:14 Lymphocytes # (Manual) 0.5 K/mm3 (1.2-5.4) L 02/06/17 10:14 Abs React Lymphs (Man) 0.0 K/mm3 02/06/17 10:14 Monocytes # (Manual) 0.7 K/mm3 (0.0-0.8) 02/06/17 10:14 Eosinophils # (Manual) 0.0 K/mm3 (0.0-0.4) 02/06/17 10:14 Basophils # (Manual) 0.0 K/mm3 (0.0-0.1) 02/06/17 10:14 Metamyelocytes # 0.0 K/mm3 02/06/17 10:14 Myelocytes # 0.0 K/mm3 02/06/17 10:14 Promyelocytes # 0.0 K/mm3 02/06/17 10:14 Blast Cells # 0.0 K/mm3 02/06/17 10:14 WBC Morphology Not Reportable 02/06/17 10:14 Hypersegmented Neuts Not Reportable 02/06/17 10:14 Hyposegmented Neuts Not Reportable 02/06/17 10:14 Hypogranular Neuts Not Reportable 02/06/17 10:14 Smudge Cells Not Reportable 02/06/17 10:14 Toxic Granulation Not Reportable 02/06/17 10:14 Toxic Vacuolation Not Reportable 02/06/17 10:14 Dohle Bodies Not Reportable 02/06/17 10:14 Pelger-Huet Anomaly Not Reportable 02/06/17 10:14 Albert Rods Not Reportable 02/06/17 10:14 Platelet Estimate Not Reportable 02/06/17 10:14 Clumped Platelets Not Reportable 02/06/17 10:14 Plt Clumps, EDTA Not Reportable 02/06/17 10:14 Large Platelets Not Reportable 02/06/17 10:14 Giant Platelets Not Reportable 02/06/17 10:14 Platelet Satelliting Not Reportable 02/06/17 10:14 Plt Morphology Comment Not Reportable 02/06/17 10:14 RBC Morphology Not Reportable 02/06/17 10:14 Dimorphic RBCs Not Reportable 02/06/17 10:14 Polychromasia Not Reportable 02/06/17 10:14 Hypochromasia Not Reportable 02/06/17 10:14 Poikilocytosis Not Reportable 02/06/17 10:14 Anisocytosis Few 02/06/17 10:14 Microcytosis Not Reportable 02/06/17 10:14 Macrocytosis Not Reportable 02/06/17 10:14 Spherocytes Not Reportable 02/06/17 10:14 Pappenheimer Bodies Not Reportable 02/06/17 10:14 Sickle Cells Not Reportable 02/06/17 10:14 Target Cells Not Reportable 02/06/17 10:14 Tear Drop Cells Not Reportable 02/06/17 10:14 Ovalocytes Not Reportable 02/06/17 10:14 Helmet Cells Not Reportable 02/06/17 10:14 [place] Bodies Not Reportable 02/06/17 10:14 [place] Rings Not Reportable 02/06/17 10:14 [place] Cells Not Reportable 02/06/17 10:14 Bite Cells Not Reportable 02/06/17 10:14 Crenated Cell Not Reportable 02/06/17 10:14 Elliptocytes Not Reportable 02/06/17 10:14 Acanthocytes (Spur) Not Reportable 02/06/17 10:14 Rouleaux Not Reportable 02/06/17 10:14 Hemoglobin C Crystals Not Reportable 02/06/17 10:14 Schistocytes Not Reportable 02/06/17 10:14 Malaria parasites Not Reportable 02/06/17 10:14 Bernardo Bodies Not Reportable 02/06/17 10:14 Hem Pathologist Commnt No 02/06/17 10:14 PT 13.1 Sec. (12.2-14.9) 02/04/17 18:43 INR 0.95 (0.87-1.13) 02/04/17 18:43 Sodium 133 mmol/L (137-145) L 02/07/17 05:27 Potassium 4.1 mmol/L (3.6-5.0) D 02/07/17 05:27 Chloride 91.3 mmol/L (98-107) L 02/07/17 05:27 Carbon Dioxide 25 mmol/L (22-30) D 02/07/17 05:27 Anion Gap 21 mmol/L 02/07/17 05:27 BUN 16 mg/dL (7-17) 02/07/17 05:27 Creatinine 0.6 mg/dL (0.7-1.2) L 02/07/17 05:27 Estimated GFR > 60 ml/min 02/07/17 05:27 BUN/Creatinine Ratio 26.66 % 02/07/17 05:27 Glucose 373 mg/dL (65-100) H 02/07/17 05:27 POC Glucose 323 (70-105) H 02/07/17 12:06 Calcium 8.9 mg/dL (8.4-10.2) 02/07/17 05:27 Troponin T < 0.010 ng/mL (0.00-0.029) 02/04/17 18:43
[2017-02-08] MEDS: DUONEB *Not for PRN Use IH SCH ×5 (00:16→19:38)
[2017-02-08] MEDS: ROBITUSSIN DM PO SCH ×6 (01:51→22:17)
[2017-02-08] MEDS ORDERED: PROVENTIL IH PRN (04:44)
[2017-02-08 05:35] LABS: Basophils % (Auto) 0.2 % (0.0-1.8); Hematocrit 38.7 % (30.3-42.9); Hemoglobin 12.8 gm/dl (10.1-14.3); Mean Corpuscular HGB Conc 33 % (30-34); Mean Corpuscular Hemoglobin 30 pg (28-32); Mean Corpuscular Volume 90 fl (79-97); Platelet Count 282 K/mm3 (140-440); Red Blood Count 4.31 M/mm3 (3.65-5.03); Red Cell Distribution Width 13.5 % (13.2-15.2); White Blood Count 9.7 K/mm3 (4.5-11.0)
[2017-02-08 05:37] LABS: Anion Gap 16 mmol/L; BUN/Creatinine Ratio 26.66; Blood Urea Nitrogen 16 mg/dL (7-17); Calcium 8.7 mg/dL (8.4-10.2); Carbon Dioxide 29 mmol/L (22-30); Chloride 91.8 mmol/L (98-107); Glucose 361 mg/dL (65-100); Potassium 4.3 mmol/L (3.6-5.0); Sodium 132 mmol/L (137-145)
[2017-02-08] MEDS: HEPARIN SUB-Q SCH ×3 (10:00→22:16)
[2017-02-08] MEDS: LEVAQUIN PO SCH (10:00)
[2017-02-08] MEDS: ZESTRIL PO SCH (10:00)
--- NOTE | 2017-02-08 11:05 | Discharge Summary ---
Providers - Providers Date of Admission: 02/05/17 01:47 Date of discharge: 02/08/17 Attending physician: ALEJANDRO JONES MD Primary care physician: REMOTE SENSING TECHNOLOGIST Hospitalization Reason for admission: Asthma exacerbation, Pneumonia Condition: Stable Pertinent studies: CTA no PE, mild brhonchial wall thickening groundglass opacities in the right upper lobe concerning for bronchitis versus viral pneumonitis. Hospital course: 46-year-old -[place] female with past medical history DM2, asthma, hypertension presented to the emergency department complaining of cough of one week duration associated with his shortness of breath and chest congestion. The patient had upper respiratory tract infection recently that she believes made worse her asthma. Patient denied fever, chills, chest pain. Patient was admitted to the floor and she was monitored according to asthma protocol. Patient showed marked improvement. Patient's diabetic medication were adjusted. Patient's lisinopril changed to amlodipine because of hyperkalemia. Patient said her insulin expensive and couldn't afford so I changed to 70/30 as a time of discharge and advised to check her blood sugar. This morning the patient's shortness of breath was subsided and home O2 evaluation was done and her oxygen saturation was above 90% without oxygen. Patient doesn't qualify for oxygen and she doesn't have insurance. I advised her to follow-up with pulmonary but she says she doesn't have insurance and she doesn't want to follow there. Patient was given by mouth antibiotics, steroids , albuterol, blood pressure medications and insulin at the time of discharge. Patient was hemodynamically stable at the time of discharge and patient's questions and concerns were addressed. Disposition: TO HOME OR SELFCARE Time spent for discharge: 31 minutes - Discharge Diagnoses (1) Diabetes Status: Acute Qualifiers: Diabetes mellitus type: D Diabetes mellitus complication status: with hyperglycemia Diabetes mellitus complication detail: D Diabetic retinopathy severity: D Proliferative retinopathy type: P Diabetes mellitus macular edema: D Diabetes mellitus terminologist insulin use: with terminologist use Laterality: L Chronic kidney disease stage: C (2) Asthma with exacerbation Status: Acute Qualifiers: Asthma severity: A (3) Shortness of breath Status: Acute Core Measure Documentation - Palliative Care Palliative Care/ Comfort Measures: Not Applicable - Core Measures Any of the following diagnoses?: none Exam - Physical Exam Narrative exam: Not in cardiopulmonary distress. The patient appeared well nourished and normally developed. Vital signs as documented. Head exam is unremarkable. No scleral icterus . Neck is without jugular venous distension, thyromegaly, or carotid bruits. Lungs significant for wheezing all over the chest markedly improved from admission condition, good air flow. Cardiac exam reveals regular rate and Rhythm. First and second heart sounds normal. No murmurs, rubs or gallops. Abdominal exam reveals normal bowel sounds, no masses. Extremities are nonedematous and both femoral and pedal pulses are normal. DEMONSTRATOR KNITTING: Alert and oriented 3. No focal weakness. - Constitutional Vitals: Temp Pulse Resp BP Pulse Ox 98.8 F 111 H 18 148/73 96 02/08/17 10:00 02/08/17 10:00 02/08/17 04:28 02/08/17 10:00 02/08/17 04:28 Plan Activity: no restrictions Weight Bearing Status: Full Weight Bearing Diet: low fat, diabetic Follow up with: PRIMARY CARE, [Primary Care Provider] - 3-5 Days Forms: Discharge Signature Page Prescriptions: ALBUTEROL NEB's [Proventil 0.083% NEBS] 2.5 mg IH QID PRN #25 neb PRN Reason: Wheezing Albuterol Sulfate [Ventolin HFA] 2 puff IH Q4H PRN #1 hfa.aer.ad PRN Reason: Shortness Of Breath amLODIPine [Norvasc] 10 mg PO DAILY #30 tab guaiFENesin DM [Robitussin Dm] 10 ml PO Q4H #1 bottle Ibuprofen [Motrin 800 MG tab] 800 mg PO Q8HR PRN #40 tablet PRN Reason: Pain Insulin NPH/Regular [NovoLIN 70/30] 100 unit SQ BIDDIAB #2 vial Ipratropium [Atrovent] 0.5 mg IH Q6HRT #60 dose Levofloxacin [Levaquin TAB] 750 mg PO Q24HR #5 tablet Prednisone [predniSONE 10 mg (6-Day Pack, 21 Tabs)] 10 mg PO .TAPER #1 tab.ds.pk
[2017-02-08 20:58] VITALS: BP 122/72
== END 2017-02-09 02:04 | disposition home or self-care (01) | DRG 202 ==
LOC: ED 18:01 → 4A 02-05 01:47
PROVIDERS: ADMIT Internal Medicine; ATTEND Internal Medicine
DX: J45.901 Unspecified asthma with (acute) exacerbation (principal); Z68.42 Body mass index [BMI] 45.0-49.9, adult; I10 Essential (primary) hypertension; E11.65 Type 2 diabetes mellitus with hyperglycemia; T38.0X5A Adverse effect of glucocorticoids and synthetic analogues, initial encounter; D72.829 Elevated white blood cell count, unspecified; E66.01 Morbid (severe) obesity due to excess calories; E87.5 Hyperkalemia; Y92.89 Other specified places as the place of occurrence of the external cause
CPT/HCPCS: 36415; 71010; 71275; 80048; 82962; 84484; 85007; 85025; 85610; 93005; 93010; 94640; 94644; 94760; 96365; 96375; J1644; J1815; J1818; J1940; J1956; J2060; J2930; J3475; Q9967

== ENCOUNTER 2017-03-24 17:56 | Emergency (ER) | payer SELFPAY ==
[2017-03-24 22:36] VITALS: BP 157/80
[2017-03-24] MEDS ORDERED: DUONEB *Not for PRN Use IH ONE (22:37)
--- NOTE | 2017-03-25 01:17 | Emergency Department Report ---
HPI - General Chief Complaint: Medical Clearance Time Seen by Provider: 03/25/17 00:44 - HPI HPI: She is a 46-year-old female with a history of asthma and COPD who presents ED stating she refill on her asthma medication. She states she run of a medication couple of days ago. Patient reports feeling well with no complaints. Patient states she does feel better after getting breathing treatment in triage. Etc. she denies fevers/chills/cough/chest pain/ shortness of breath or any Other problems ED Past Medical Hx - Past Medical History Previous Medical History?: Yes Hx Hypertension: Yes Hx Diabetes: Yes Hx Asthma: Yes - Social History Smoking Status: Never Smoker - Medications Home Medications: Home Medications Medication Instructions Recorded Confirmed Last Taken Type Albuterol Sulfate [Ventolin HFA] 2 puff IH Q4H PRN #1 hfa.aer.ad 02/08/17 Unknown Rx Ibuprofen [Motrin 800 MG tab] 800 mg PO Q8HR PRN #40 tablet 02/08/17 Unknown Rx Insulin NPH/Regular [NovoLIN 70/30] 100 unit SQ BIDDIAB #2 vial 02/08/17 Unknown Rx Levofloxacin [Levaquin TAB] 750 mg PO Q24HR #5 tablet 02/08/17 Unknown Rx Prednisone [predniSONE 10 mg 10 mg PO .TAPER #1 tab.ds.pk 02/08/17 Unknown Rx (6-Day Pack, 21 Tabs)] amLODIPine [Norvasc] 10 mg PO DAILY #30 tab 02/08/17 Unknown Rx guaiFENesin DM [Robitussin Dm] 10 ml PO Q4H #1 bottle 02/08/17 Unknown Rx ALBUTEROL NEB's [Proventil 0.083% 2.5 mg IH QID PRN #25 neb 03/25/17 Unknown Rx NEBS] Ipratropium [Atrovent NEB] 0.5 mg IH Q6HRT #60 dose 03/25/17 Unknown Rx ED Review of Systems ROS: Stated complaint: REFILLS ON MEDS Other details as noted in HPI Constitutional: denies: chills, fever Eyes: denies: eye pain, eye discharge, vision change ENT: denies: ear pain, throat pain Respiratory: denies: cough, shortness of breath, wheezing Cardiovascular: denies: chest pain, palpitations Endocrine: no symptoms reported Gastrointestinal: denies: abdominal pain, nausea, diarrhea Genitourinary: denies: urgency, dysuria, discharge Musculoskeletal: denies: back pain, joint swelling, arthralgia Skin: denies: rash, lesions Neurological: denies: headache, weakness, paresthesias Psychiatric: denies: anxiety, depression Hematological/Lymphatic: denies: easy bleeding, easy bruising Physical Exam - Physical Exam Vital Signs: Vital Signs 03/24/17 03/24/17 03/24/17 18:03 22:33 22:51 Temperature 98.0 F 98.2 F Pulse Rate 105 H 94 H Pulse Rate [ 107 H Anterior Bilateral Throughout] Respiratory 16 16 Rate Respiratory 28 H Rate [Anterior Bilateral Throughout] Blood Pressure 137/92 157/80 O2 Sat by Pulse 98 97 Oximetry 03/24/17 23:01 Temperature Pulse Rate Pulse Rate [ 92 H Anterior Bilateral Throughout] Respiratory Rate Respiratory 22 Rate [Anterior Bilateral Throughout] Blood Pressure O2 Sat by Pulse Oximetry Physical Exam: GENERAL: Alert and oriented x3, no apparent distress, Normal Gait, atraumatic. NECK: Supple. Non edematous, No carotid bruits. No lymphadenopathy or thyromegaly. No C-spine tenderness LUNGS: Symetrical with respiration, No wheezing, no rales or crackles, CTAB. HEART: S1, S2 present, regular rate and rhythm without murmur, no rubs, no gallops. Non tender to palpation SKIN: Warm and dry, No lesions, No ulceration or induration present. ED Course Vital Signs 03/24/17 03/24/17 03/24/17 18:03 22:33 22:51 Temperature 98.0 F 98.2 F Pulse Rate 105 H 94 H Pulse Rate [ 107 H Anterior Bilateral Throughout] Respiratory 16 16 Rate Respiratory 28 H Rate [Anterior Bilateral Throughout] Blood Pressure 137/92 157/80 O2 Sat by Pulse 98 97 Oximetry 03/24/17 23:01 Temperature Pulse Rate Pulse Rate [ 92 H Anterior Bilateral Throughout] Respiratory Rate Respiratory 22 Rate [Anterior Bilateral Throughout] Blood Pressure O2 Sat by Pulse Oximetry ED Medical Decision Making - Medical Decision Making 36-year-old female presents for medication refill ED course: Patient received one breathing treatment in ED. Lung exam shows normal findings Patient is in no acute distress or respiratory distress. Discussed the risk of medications today Discussed admission follow-up with primary care physician. Vital signs are normal Critical care attestation.: If time is entered above; I have spent that time in minutes in the direct care of this critically ill patient, excluding procedure time. ED Disposition Clinical Impression: Medication refill Disposition: TO HOME OR SELFCARE Is pt being admited?: No Does the pt Need Aspirin: No Condition: Stable Instructions: Asthma (ED) Prescriptions: ALBUTEROL NEB's [Proventil 0.083% NEBS] 2.5 mg IH QID PRN #25 neb PRN Reason: Wheezing Ipratropium [Atrovent NEB] 0.5 mg IH Q6HRT #60 dose Referrals: PRIMARY CARE, [Primary Care Provider] - 3-5 Days [facility] [Outside] - 3-5 Days [facility] [Outside] - 3-5 Days [facility] [Outside] - 3-5 Days Forms: Work/School Release Form(ED) Time of Disposition: 01:21
== END 2017-03-25 01:40 | disposition home or self-care (01) ==
LOC: ED 17:56
DX: Z76.0 Encounter for issue of repeat prescription (principal); I10 Essential (primary) hypertension; E11.9 Type 2 diabetes mellitus without complications; J44.9 Chronic obstructive pulmonary disease, unspecified; Z79.4 Long term (current) use of insulin
CPT/HCPCS: 94640; 99282

== ENCOUNTER 2017-04-04 17:36 | Inpatient (IN) | payer SELFPAY ==
[2017-04-04 18:49] LABS: Eosinophils % (Auto) 2.4 % (0.0-4.3); Hematocrit 42.5 % (30.3-42.9); Hemoglobin 14.6 gm/dl (10.1-14.3); Mean Corpuscular HGB Conc 34 % (30-34); Mean Corpuscular Hemoglobin 30 pg (28-32); Mean Corpuscular Volume 88 fl (79-97); Platelet Count 308 K/mm3 (140-440); Red Blood Count 4.83 M/mm3 (3.65-5.03); Red Cell Distribution Width 14.7 % (13.2-15.2); White Blood Count 8.5 K/mm3 (4.5-11.0)
[2017-04-04 19:05] LABS: Anion Gap 20 mmol/L; BUN/Creatinine Ratio 13; Blood Urea Nitrogen 5 mg/dL (7-17); Carbon Dioxide 25 mmol/L (22-30); Chloride 92.6 mmol/L (98-107); Glucose 211 mg/dL (65-100); Potassium 4.1 mmol/L (3.6-5.0); Sodium 133 mmol/L (137-145)
--- NOTE | 2017-04-04 19:07 | XRay Report ---
FINAL REPORT PROCEDURE: XR CHEST ROUTINE 2V TECHNIQUE: Two views of the chest are obtained HISTORY: Shortness of breath COMPARISON: CTA chest dated February 06, 2017 FINDINGS: The heart is normal in size. There is no focal infiltrate, pneumothorax or pleural effusion. IMPRESSION: No acute abnormality is seen.
[2017-04-04] MEDS ORDERED: PROVENTIL IH ONE ×2 (19:52→21:00)
[2017-04-04] MEDS ORDERED: ATROVENT IH ONE (19:53)
[2017-04-04] MEDS ORDERED: DECADRON PO ONE (21:01)
--- NOTE | 2017-04-04 21:06 | Emergency Department Report ---
ED Shortness of Breath HPI - General Chief Complaint: Dyspnea/Respdistress Stated Complaint: HARD TIME BREATHING Time Seen by Provider: 04/04/17 20:45 Source: patient Mode of arrival: Ambulatory Limitations: No Limitations - History of Present Illness Initial Comments: 46yo female with 3 days of productive cough. she has a h/o asthma, copd and used her nebulizer twice before coming to the emergency department today. she denies any chills but said she thought she was feeling hot as though she had a fever. Ms Ashley received albuterol/atrovent via nebulizer prior to my arrival as well as chest xray. MD Complaint: shortness of breath -: Gradual (over 3 days) Radiation: other (bilatera sides) Severity: mild Pain Scale: 3 Quality: aching Consistency: intermittent Improves With: oxygen, medication Worsens With: coughing Known History Of: COPD, asthma Context: recent URI Associated Symptoms: cough - Related Data Previous Rx's Medication Instructions Recorded Last Taken Type Ibuprofen [Motrin 800 MG tab] 800 mg PO Q8HR PRN #40 tablet 02/08/17 Unknown Rx Insulin NPH/Regular [NovoLIN 70/30] 100 unit SQ BIDDIAB #2 vial 02/08/17 Unknown Rx Prednisone [predniSONE 10 mg 10 mg PO .TAPER #1 tab.ds.pk 02/08/17 Unknown Rx (6-Day Pack, 21 Tabs)] amLODIPine [Norvasc] 10 mg PO DAILY #30 tab 02/08/17 Unknown Rx guaiFENesin DM [Robitussin Dm] 10 ml PO Q4H #1 bottle 02/08/17 Unknown Rx ALBUTEROL NEB's [Proventil 0.083% 2.5 mg IH QID PRN #25 neb 04/04/17 Unknown Rx NEBS] Albuterol Sulfate [Ventolin HFA] 2 puff IH Q4H PRN #1 hfa.aer.ad 04/04/17 Unknown Rx Dexamethasone [Decadron] 20 mg PO ONCE #5 tablet 04/04/17 Unknown Rx Ipratropium [Atrovent NEB] 0.5 mg IH Q6HRT #60 dose 04/04/17 Unknown Rx Levofloxacin [Levaquin TAB] 750 mg PO Q24HR #5 tablet 04/04/17 Unknown Rx Allergies Allergy/AdvReac Type Severity Reaction Status Date / Time No Known Allergies Allergy Verified 02/04/17 18:09 ED Review of Systems ROS: Stated complaint: HARD TIME BREATHING Other details as noted in HPI Constitutional: denies: chills, fever Eyes: denies: eye pain, eye discharge, vision change ENT: denies: ear pain, throat pain Respiratory: cough, SOB at rest, wheezing Cardiovascular: denies: chest pain, palpitations Endocrine: no symptoms reported Gastrointestinal: denies: abdominal pain, nausea, diarrhea Genitourinary: denies: urgency, dysuria, discharge Musculoskeletal: other (bilateral side pain). denies: joint swelling, arthralgia Skin: denies: rash, lesions Neurological: denies: headache, weakness, paresthesias Psychiatric: denies: anxiety, depression Hematological/Lymphatic: denies: easy bleeding, easy bruising ED Past Medical Hx - Past Medical History Previous Medical History?: Yes Hx Hypertension: Yes Hx Diabetes: Yes Hx Asthma: Yes Hx COPD: Yes - Surgical History Past Surgical History?: No - Social History Smoking Status: Never Smoker Substance Use Type: Alcohol - Medications Home Medications: Home Medications Medication Instructions Recorded Confirmed Last Taken Type Ibuprofen [Motrin 800 MG tab] 800 mg PO Q8HR PRN #40 tablet 02/08/17 Unknown Rx Insulin NPH/Regular [NovoLIN 70/30] 100 unit SQ BIDDIAB #2 vial 02/08/17 Unknown Rx Prednisone [predniSONE 10 mg 10 mg PO .TAPER #1 tab.ds.pk 02/08/17 Unknown Rx (6-Day Pack, 21 Tabs)] amLODIPine [Norvasc] 10 mg PO DAILY #30 tab 02/08/17 Unknown Rx guaiFENesin DM [Robitussin Dm] 10 ml PO Q4H #1 bottle 02/08/17 Unknown Rx ALBUTEROL NEB's [Proventil 0.083% 2.5 mg IH QID PRN #25 neb 04/04/17 Unknown Rx NEBS] Albuterol Sulfate [Ventolin HFA] 2 puff IH Q4H PRN #1 hfa.aer.ad 04/04/17 Unknown Rx Dexamethasone [Decadron] 20 mg PO ONCE #5 tablet 04/04/17 Unknown Rx Ipratropium [Atrovent NEB] 0.5 mg IH Q6HRT #60 dose 04/04/17 Unknown Rx Levofloxacin [Levaquin TAB] 750 mg PO Q24HR #5 tablet 04/04/17 Unknown Rx ED Physical Exam - General Limitations: No Limitations General appearance: alert, in no apparent distress - Head Head exam: Present: atraumatic, normocephalic - Eye Eye exam: Present: normal appearance, EOMI. Absent: scleral icterus, conjunctival injection - ENT ENT exam: Present: normal exam, mucous membranes moist - Neck Neck exam: Present: normal inspection - Respiratory Respiratory exam: Present: respiratory distress, decreased breath sounds ( bilateral), prolonged expiratory. Absent: wheezes, rales, rhonchi - Cardiovascular Cardiovascular Exam: Present: regular rate, normal rhythm. Absent: systolic murmur, diastolic murmur, rubs, gallop - GI/Abdominal GI/Abdominal exam: Present: soft, normal bowel sounds, other (large centripital fat). Absent: guarding, rebound - Rectal Rectal exam: Present: deferred - Extremities Exam Extremities exam: Present: normal inspection - Back Exam Back exam: Present: normal inspection, full ROM - Neurological Exam Neurological exam: Present: alert, oriented X3 - Psychiatric Psychiatric exam: Present: normal affect, normal mood - Skin Skin exam: Present: warm, dry, intact, normal color. Absent: rash ED Course Vital Signs 04/04/17 04/04/17 04/04/17 17:55 19:59 20:25 Temperature 99.4 F Pulse Rate 117 H Pulse Rate [ 114 H 117 H Anterior Bilateral Throughout] Respiratory 20 Rate Respiratory 28 H 28 H Rate [Anterior Bilateral Throughout] Blood Pressure 144/92 Blood Pressure [Right] O2 Sat by Pulse 95 Oximetry 04/04/17 22:30 Temperature Pulse Rate 120 H Pulse Rate [ Anterior Bilateral Throughout] Respiratory 20 Rate Respiratory Rate [Anterior Bilateral Throughout] Blood Pressure Blood Pressure 147/89 [Right] O2 Sat by Pulse 92 Oximetry - Reevaluation(s) Reevaluation #1: 04/05/17 00:09 pt still sob and will be admitted to the hospital ED Medical Decision Making - Lab Data Result diagrams: 04/04/17 18:28 04/04/17 18:28 - EKG Data EKG shows normal: sinus rhythm, axis, QRS complexes (pvc) Rate: tachycardia - EKG Data Interpretation: nonspecific ST-T wave scottie - Radiology Data Radiology results: report reviewed (negative) Critical Care Time: Yes Critical care time in (mins) excluding proc time.: 30 Critical care attestation.: If time is entered above; I have spent that time in minutes in the direct care of this critically ill patient, excluding procedure time. time spent critical care is 30min Critical Care Time: 30min ED Disposition Clinical Impression: COPD exacerbation Acute bronchitis Qualifiers: Bronchitis organism: unspecified organism Qualified Code(s): J20.9 - Acute bronchitis, unspecified Hypertension Qualifiers: Hypertension type: unspecified Qualified Code(s): I10 - Essential (primary) hypertension Disposition: OP ADMIT IP TO THIS HOSP Is pt being admited?: Yes Does the pt Need Aspirin: No Condition: Stable Instructions: Acute Bronchitis (ED), Chronic Obstructive Pulmonary Disease (ED) , Hypertension (ED) Prescriptions: ALBUTEROL NEB's [Proventil 0.083% NEBS] 2.5 mg IH QID PRN #25 neb PRN Reason: Wheezing Albuterol Sulfate [Ventolin HFA] 2 puff IH Q4H PRN #1 hfa.aer.ad PRN Reason: Shortness Of Breath Dexamethasone [Decadron] 20 mg PO ONCE #5 tablet Ipratropium [Atrovent NEB] 0.5 mg IH Q6HRT #60 dose Levofloxacin [Levaquin TAB] 750 mg PO Q24HR #5 tablet Referrals: PRIMARY CARE, [Primary Care Provider] - 3-5 Days Time of Disposition: 00:08 (case reviewed with dr rust and he will admit her to the hospital)
[2017-04-04] MEDS ORDERED: DECADRON ONE ×2 (22:48→23:15)
[2017-04-04] MEDS ORDERED: DECADRON 20 MG in NACL 0.9% 50 ML IV ONE (22:50)
[2017-04-05 00:11] LABS: ISTAT Base Excess 0; ISTAT PCO2 30.6 (35-45); ISTAT PH 7.484 (7.35-7.45); ISTAT PO2 67 (80-105); ISTAT SO2 95; ISTAT TCO2 24
[2017-04-05] MEDS ORDERED: DUONEB *Not for PRN Use IH (01:12)
[2017-04-05] MEDS ORDERED: ZOFRAN IV PRN (01:27)
[2017-04-05] MEDS ORDERED: PROVENTIL IH PRN (01:40)
[2017-04-05] MEDS ORDERED: D50W (25GM) Vial IV PRN (02:00)
[2017-04-05] MEDS ORDERED: NON-FORMULARY (Prednisone [Prednisone 10 Mg (6-Day Pack, 21 Tabs)] 10 MG) PO SCH (02:00)
[2017-04-05] MEDS ORDERED: LEVAQUIN 750MG/150ML 750 MG/150 ML BAG IV SCH (02:00)
[2017-04-05] MEDS ORDERED: LEVAQUIN 750MG/150ML 750 MG/150 ML BAG IV ONE (02:37)
[2017-04-05] MEDS ORDERED: PROVENTIL IH ONE (03:06)
--- NOTE | 2017-04-05 05:07 | History and Physical Report ---
CHIEF COMPLAINT: Difficulty in breathing. HISTORY OF PRESENT ILLNESS: The patient is a 46-year-old female with history of asthma, who came in with 3-day history of cough and difficulty in breathing. The patient states she used her nebulizer twice before coming to the Emergency Room, but continued to have difficulty in breathing. There was no history of fever or chills. No history of chest pain. No history of falls. No nausea or vomiting. The patient after getting treatment in the Emergency Room, continued to have difficulty in breathing and continued to need oxygen therapy and was presented for evaluation for admission. PAST MEDICAL HISTORY: Pertinent for hypertension, diabetes mellitus, asthma, COPD. PAST SURGICAL HISTORY: Unremarkable. FAMILY HISTORY: Noncontributory. SOCIAL HISTORY: The patient drinks alcohol occasionally. Does not smoke, does not use illicit drugs. MEDICATIONS: The patient is on ibuprofen 800 mg every 8 hours as needed for pain. The patient is on insulin NPH/regular 70/30 100 units subQ twice daily and on prednisone 6-day pack with tapering doses. The patient is also on amlodipine 10 mg by mouth daily, Robitussin-DM 10 mL every 4 hours, albuterol nebulizer 2.5 mg inhalation 4 times daily. The patient is also on Ventolin metered dose inhaler 2 puffs every 4 hours as needed for shortness of breath and Decadron 20 mg by mouth once. The patient is on ipratropium nebulizer 0.5 mg inhalation every 6 hours and Levaquin tablets 70 mg by mouth daily. ALLERGIES: There are no known drug allergies. REVIEW OF SYSTEMS: CONSTITUTIONAL: There is no fever, no chills, no diaphoresis. HEENT: There is no headache or sore throat. CARDIOVASCULAR: There is no chest pain or orthopnea. RESPIRATORY: Shortness of breath present. Cough present. GASTROINTESTINAL: There is no nausea, no vomiting, no abdominal pain, diarrhea or constipation. NEUROLOGICAL: There is no numbness, no dizziness, no altered mental status. MUSCULOSKELETAL: There is no joint pain or swelling. DERMATOLOGICAL: There is no skin rash or itching. GENITOURINARY: There is no dysuria, hematuria, or flank pain. Rest of system review is normal. PHYSICAL EXAMINATION: GENERAL: At the time of exam, the patient was found to be alert, oriented x 3 and in mild distress due to shortness of breath. VITAL SIGNS: Shows temperature of 99.4 degrees Fahrenheit, pulse of 120, respirations 20, blood pressure 147/89, O2 sat of 92% on oxygen. HEENT: Showed pupils to be equal, round, reactive to light and accommodating. Extraocular muscles are intact. NECK: Supple with no JVD or carotid bruit. CARDIOVASCULAR: Showed normal first and second heart sounds with no gallops or murmur. RESPIRATORY: Show reduced air entry on both sides of the lung with bilateral scattered crackles. GASTROINTESTINAL SYSTEM: Show abdomen to be full, soft, nontender with no organomegaly or rigidity. NEUROLOGICAL: Showed no focal deficit. MUSCULOSKELETAL: Show no joint swelling or tenderness. DERMATOLOGICAL SYSTEM: Show no skin rash. GENITOURINARY: Showing no costovertebral angle tenderness. PERTINENT LABORATORY AND IMAGING STUDIES: The patient had a chest x-ray done that shows no acute lesions. The patient's CBC shows with normal white count,, slightly elevated hemoglobin of 14.6, normal hematocrit with ABG showing elevated pH of 7.48, low pCO2 of 30.6 with low pO2 of 67 and this was done on 2 liters of oxygen. The patient's chemistry showed low sodium of 133 with low chloride of 92.6, low BUN of 5 and low creatinine of 0.4. Elevated glucose of 211. DIAGNOSES: 1. Chronic obstructive pulmonary disease exacerbation. 2. Asthma exacerbation. 3. Diabetes mellitus. PLAN: The patient will be admitted to medical floor on telemetry, will be on DuoNeb t.i.d. as needed for shortness of breath. The patient will have IV Solu-Medrol 60 mg q. 8 hours and will be on Robitussin 300 mg by mouth every 4 hours as needed for cough. DVT prophylaxis will be through heparin 5000 units subQ q. 12 hours. The patient will be on Accu-Chek before meals and at bedtime followed by sliding scale using regular insulin. The patient will be on Levaquin 750 mg IV daily and will be on other p.r.n. medications like Tylenol 650 mg by mouth every 4 hours and Zofran 4 mg IV every 6 hours for nausea and vomiting. The patient will remain on oxygen at 2 L per minute, which will be adjusted to keep O2 sat above 92%. The patient's diet will be low sodium diet and consistent carbohydrate diet. The patient's home medications will be reconciled and started as shown in the medication reconciliation section. JOB# [id number] OCN/NTS
[2017-04-05 07:20] LABS: Creatine Kinase MB < 1.0 ng/mL (0.0-4.0)
[2017-04-05 07:22] LABS: Creatine Kinase 34 units/L (30-135)
[2017-04-05] MEDS: DUONEB *Not for PRN Use IH SCH ×3 (07:22→20:30)
[2017-04-05] MEDS: TYLENOL PO PRN (09:37)
[2017-04-05] MEDS: NORVASC PO SCH (09:38)
[2017-04-05] MEDS: ROBITUSSIN PO PRN ×2 (09:38→18:51)
[2017-04-05] MEDS: HEPARIN SUB-Q SCH ×2 (09:40→21:58)
--- NOTE | 2017-04-05 09:53 | Progress Note ---
Assessment and Plan /Acute exacerbation of asthma - Continue Solu-Medrol 60 MG every 12 hours - Aggressive nebulizer breathing treatment - Robitussin as needed for cough - Continue Levaquin daily /Insulin-dependent Diabetes mellitus type 2 - We'll continue insulin 70/30 and sliding scale - Placed on ADA diet /Hypertension - Monitor BP and continue home meds - Adjust medications as needed /Morbid obesity - Likely due to excess calorie - Dietary recommendation /DVT prophylaxis - Continue Lovenox Brief history: This is a 46-year-old morbidly obese female with history of asthma, hypertension and insulin-dependent diabetes mellitus type 2 presented with progressive worsening of shortness of breath. Subjective Date of service: 04/05/17 Interval history: Patient seen and examined. Medical records and medication list reviewed. No acute event overnight noted by the RN. Patient c/o difficulty breathing with minimal exertion. Patient is tolerating diet. Discussed plan of care at bedside with patient. Objective - Exam Narrative Exam: GENERAL: well-developed and well-nourished appeared to be in no moderate discomfort. HEENT: Normocephalic. Atraumatic. No conjunctival congestion or icterus. Patient has moist mucous membranes. NECK: Supple. Trachea midline. CHEST/LUNGS: diffuse wheezes auscultated bilaterally, breathing nonlabored. No crackles or rhonchi. HEART/CARDIOVASCULAR: Regular in rate and rhythm. S1 and S2 positive. ABDOMEN: Abdomen is soft, nontender. Patient has normal bowel sounds. SKIN: There is no rash. Warm and dry. NEURO: No focal motor deficit. Follows command. MUSCULOSKELETAL: No joint effusion or tenderness. EXTRIMITY: No edema, no cyanosis or clubbing. PSYCH: Cooperative. - Constitutional Vitals: Vital Signs - 12hr 04/05/17 04/05/17 04/05/17 01:20 01:30 01:40 Temperature Pulse Rate Pulse Rate [ Anterior Bilateral Throughout] Respiratory Rate Respiratory Rate [Anterior Bilateral Throughout] Blood Pressure 130/80 147/90 147/90 O2 Sat by Pulse 93 93 93 Oximetry 04/05/17 04/05/17 04/05/17 01:50 02:16 02:20 Temperature Pulse Rate Pulse Rate [ Anterior Bilateral Throughout] Respiratory Rate Respiratory Rate [Anterior Bilateral Throughout] Blood Pressure 147/90 147/90 147/90 O2 Sat by Pulse 92 94 96 Oximetry 04/05/17 04/05/1704/05/17 02:30 02:40 02:50 Temperature Pulse Rate Pulse Rate [ Anterior Bilateral Throughout] Respiratory Rate Respiratory Rate [Anterior Bilateral Throughout] Blood Pressure 147/90 147/90 158/88 O2 Sat by Pulse 94 93 93 Oximetry 04/05/17 04/05/17 04/05/17 03:06 04:19 06:03 Temperature 98.3 F Pulse Rate 111 H 120 H Pulse Rate [ 108 H Anterior Bilateral Throughout] Respiratory 18 Rate Respiratory 28 H Rate [Anterior Bilateral Throughout] Blood Pressure 145/94 O2 Sat by Pulse 93 Oximetry 04/05/17 04/05/17 04/05/17 07:22 07:23 07:24 Temperature Pulse Rate Pulse Rate [ 118 H 119 H Anterior Bilateral Throughout] Respiratory Rate Respiratory 19 19 Rate [Anterior Bilateral Throughout] Blood Pressure O2 Sat by Pulse 94 Oximetry 04/05/17 04/05/17 07:57 09:38 Temperature 98.2 F Pulse Rate 125 H 103 H Pulse Rate [ Anterior Bilateral Throughout] Respiratory 26 H Rate Respiratory Rate [Anterior Bilateral Throughout] Blood Pressure 148/85 148/85 O2 Sat by Pulse 94 Oximetry - Labs CBC & Chem 7: 04/04/17 18:28 04/04/17 18:28 Labs: Abnormal lab results 04/05/17 Range/Units 08:06 POC Glucose 327 H (70-105)
[2017-04-05 13:53] LABS: Creatine Kinase MB 1.1 ng/mL (0.0-4.0)
[2017-04-05 14:00] LABS: Creatine Kinase 33 units/L (30-135)
[2017-04-05] MEDS: LEVAQUIN PO SCH (21:58)
[2017-04-06] MEDS: DUONEB *Not for PRN Use IH SCH ×3 (08:06→20:14)
[2017-04-06] MEDS: TYLENOL PO PRN (08:29)
[2017-04-06] MEDS: NORVASC PO SCH ×2 (09:58→10:29)
[2017-04-06] MEDS: HEPARIN SUB-Q SCH ×3 (09:58→23:08)
[2017-04-06] MEDS: ROBITUSSIN PO PRN ×2 (14:09→23:20)
--- NOTE | 2017-04-06 15:51 | Progress Note ---
Assessment and Plan /Acute respiratory failure with hypoxia - POA - due to acute asthma exacerbation - cont to her asthma and wean off O2 as tolerated /Acute exacerbation of asthma - Continue Solu-Medrol 60 MG every 12 hours - Aggressive nebulizer breathing treatment - Robitussin as needed for cough - Continue Levaquin daily /Insulin-dependent Diabetes mellitus type 2 - We'll continue insulin 70/30 and sliding scale - Placed on ADA diet /Hypertension - Monitor BP and continue home meds - Adjust medications as needed /Morbid obesity - Likely due to excess calorie - Dietary recommendation /DVT prophylaxis - Continue Lovenox Brief history: This is a 46-year-old morbidly obese female with history of asthma, hypertension and insulin-dependent diabetes mellitus type 2 presented with progressive worsening of shortness of breath. Subjective Date of service: 04/06/17 Interval history: Patient seen and examined. Medical records and medication list reviewed. No acute event overnight noted by the RN. Patient c/o difficulty breathing with exertion and states it is not at baseline yet. Patient is tolerating diet. Discussed plan of care at bedside with patient. Objective - Exam Narrative Exam: GENERAL: well-developed and well-nourished appeared to be in no moderate discomfort. HEENT: Normocephalic. Atraumatic. No conjunctival congestion or icterus. Patient has moist mucous membranes. NECK: Supple. Trachea midline. CHEST/LUNGS: diffuse wheezes auscultated bilaterally, breathing nonlabored. No crackles or rhonchi. HEART/CARDIOVASCULAR: Regular in rate and rhythm. S1 and S2 positive. ABDOMEN: Abdomen is soft, nontender. Patient has normal bowel sounds. SKIN: There is no rash. Warm and dry. NEURO: No focal motor deficit. Follows command. MUSCULOSKELETAL: No joint effusion or tenderness. EXTRIMITY: No edema, no cyanosis or clubbing. PSYCH: Cooperative. - Constitutional Vitals: Vital Signs - 12hr 04/06/17 04/06/17 04/06/17 05:01 08:07 08:12 Temperature 98.2 F Pulse Rate 98 H Pulse Rate [ 99 H 102 H Anterior Bilateral Throughout] Pulse Rate [ From Monitor] Respiratory 20 Rate Respiratory 18 18 Rate [Anterior Bilateral Throughout] Blood Pressure 121/82 Blood Pressure [Right] O2 Sat by Pulse 96 96 Oximetry 04/06/17 04/06/17 04/06/17 08:29 09:54 10:00 Temperature 98.3 F Pulse Rate 90 Pulse Rate [ Anterior Bilateral Throughout] Pulse Rate [ 90 From Monitor] Respiratory 20 18 18 Rate Respiratory Rate [Anterior Bilateral Throughout] Blood Pressure Blood Pressure 144/85 [Right] O2 Sat by Pulse 99 98 Oximetry 04/06/17 04/06/17 04/06/17 10:53 11:00 12:26 Temperature 97.7 F Pulse Rate 84 96 H Pulse Rate [ Anterior Bilateral Throughout] Pulse Rate [ From Monitor] Respiratory 18 Rate Respiratory Rate [Anterior Bilateral Throughout] Blood Pressure Blood Pressure 120/71 [Right] O2 Sat by Pulse 95 97 Oximetry 04/06/17 04/06/17 04/06/17 14:02 14:10 14:17 Temperature Pulse Rate Pulse Rate [ 94 H 92 H Anterior Bilateral Throughout] Pulse Rate [ From Monitor] Respiratory Rate Respiratory 20 20 Rate [Anterior Bilateral Throughout] Blood Pressure Blood Pressure [Right] O2 Sat by Pulse 95 Oximetry - Labs CBC & Chem 7: 04/04/17 18:28 04/04/17 18:28 Labs: Abnormal lab results 04/05/17 04/05/17 Range/Units 18:47 22:37 POC Glucose 367 H 320 H (70-105)
[2017-04-06] MEDS: LEVAQUIN PO SCH (23:09)
[2017-04-07 08:56] VITALS: BP 114/72
[2017-04-07] MEDS: DUONEB *Not for PRN Use IH SCH (09:21)
[2017-04-07] MEDS: ROBITUSSIN PO PRN (09:26)
[2017-04-07] MEDS: HEPARIN SUB-Q SCH (09:27)
[2017-04-07] MEDS: NORVASC PO SCH (09:27)
--- NOTE | 2017-04-07 12:28 | Discharge Summary ---
Providers - Providers Date of Admission: 04/05/17 01:10 Date of discharge: 04/07/17 Attending physician: MARTELL BELLO Primary care physician: JAILYN KILGORE MD Hospitalization Condition: Stable Hospital course: Brief history: This is a 46-year-old morbidly obese female with history of asthma, hypertension and insulin-dependent diabetes mellitus type 2 presented with progressive worsening of shortness of breath. Discharge diagnosis: /Acute respiratory failure with hypoxia - POA - due to acute asthma exacerbation - cont to her asthma and wean off O2 as tolerated /Acute exacerbation of asthma - Continue Solu-Medrol 60 MG every 12 hours - Aggressive nebulizer breathing treatment - Robitussin as needed for cough - Continue Levaquin daily /Insulin-dependent Diabetes mellitus type 2 - We'll continue insulin 70/30 and sliding scale - Placed on ADA diet /Hypertension - Monitor BP and continue home meds - Adjust medications as needed /Morbid obesity - Likely due to excess calorie - Dietary recommendation /DVT prophylaxis - Continue Lovenox Disposition: - TO HOME OR SELFCARE Time spent for discharge: 32 minutes Core Measure Documentation - Palliative Care Palliative Care/ Comfort Measures: Not Applicable - Core Measures Any of the following diagnoses?: none Exam - Physical Exam Narrative exam: GENERAL: well-developed and well-nourished appeared to be in no moderate discomfort. HEENT: Normocephalic. Atraumatic. No conjunctival congestion or icterus. Patient has moist mucous membranes. NECK: Supple. Trachea midline. CHEST/LUNGS: + few wheezes auscultated bilaterally, breathing nonlabored. No crackles or rhonchi. HEART/CARDIOVASCULAR: Regular in rate and rhythm. S1 and S2 positive. ABDOMEN: Abdomen is soft, nontender. Patient has normal bowel sounds. SKIN: There is no rash. Warm and dry. NEURO: No focal motor deficit. Follows command. MUSCULOSKELETAL: No joint effusion or tenderness. EXTRIMITY: No edema, no cyanosis or clubbing. PSYCH: Cooperative. - Constitutional Vitals: Temp Pulse Resp BP Pulse Ox 98.7 F 84 18 114/72 98 04/07/17 08:38 04/07/17 10:09 04/07/17 10:00 04/07/17 08:38 04/07/17 10:00 Plan Activity: advance as tolerated Weight Bearing Status: Weight Bear as Tolerated Diet: low fat, low salt Follow up with: PRIMARY CARE, [Primary Care Provider] - 3-5 Days Prescriptions: Albuterol Sulfate [Ventolin HFA] 2 puff IH Q4H PRN #1 hfa.aer.ad PRN Reason: Shortness Of Breath amLODIPine [Norvasc] 10 mg PO DAILY #30 tab Azithromycin [Zithromax TAB] 500 mg PO QDAY #5 tablet Insulin NPH/Regular [NovoLIN 70/30] 30 unit SQ BIDDIAB #2 vial predniSONE [Deltasone] 50 mg PO QDAY #5 tab Ipratropium/Albuterol Sulfate [DUONEB *Not for PRN Use*] 1 ampul IH TIDRT #30 ampul.neb
== END 2017-04-07 13:21 | disposition home or self-care (01) | DRG 189 ==
LOC: ED 17:36 → 4A 04-05 01:10
PROVIDERS: ADMIT Internal Medicine; ATTEND Internal Medicine
PROC: 4A033R1 Measurement of Arterial Saturation, Peripheral, Percutaneous Approach (ICD-10-PCS; principal; 2017-04-05)
DX: J96.01 Acute respiratory failure with hypoxia (principal); J45.901 Unspecified asthma with (acute) exacerbation; Z68.42 Body mass index [BMI] 45.0-49.9, adult; J44.0 Chronic obstructive pulmonary disease with (acute) lower respiratory infection; J44.1 Chronic obstructive pulmonary disease with (acute) exacerbation; E66.01 Morbid (severe) obesity due to excess calories; I10 Essential (primary) hypertension; J20.9 Acute bronchitis, unspecified; E11.9 Type 2 diabetes mellitus without complications; Z79.4 Long term (current) use of insulin; Z79.899 Other long term (current) drug therapy
CPT/HCPCS: 36415; 71020; 80048; 82550; 82553; 82803; 82962; 83036; 84484; 85025; 93005; 93010; 94640; 94760; 96374; J1100; J1644; J1815; J1956; J2920

== ENCOUNTER 2017-07-24 15:34 | Emergency (ER) | payer SELFPAY ==
[2017-07-24] MEDS ORDERED: DUONEB *Not for PRN Use IH ONE (17:01)
[2017-07-24] MEDS ORDERED: CATAPRES PO ONE (17:01)
--- NOTE | 2017-07-24 17:01 | Emergency Department Report ---
Blank Doc - Documentation Documentation: Is a 46-year-old [place] female past medical history of hypertension and COPD and diabetes who says she ran out of her albuterol 3 days ago she's had some increased wheezing and cough congestion. Patient also did not take her blood pressure medicines this morning because she ran out of that this morning. Patient does have a mild wheeze and decreased breath sounds and is able speak in full sentences patient be given 2 DuoNeb prednisone will be reassessed
[2017-07-24] MEDS ORDERED: DELTASONE PO NR (18:00)
--- NOTE | 2017-07-24 18:45 | Emergency Department Report ---
Minor Respiratory - HPI Chief Complaint: Dyspnea/Respdistress Stated Complaint: ASTHMA/ANGELITA/SOB Time Seen by Provider: 07/24/17 16:38 Duration: 3 Days Severity: mild Minor Respiratory: Yes Able to Tolerate Fluids, Yes Cough, Yes Shortness of Breath, No Rhinorrhea, No Sore Throat, No Ear Pain, No Sick Contacts, No Hemoptysis, No Chest Pain, No Fever ED Review of Systems ROS: Stated complaint: ASTHMA/ANGELITA/SOB Other details as noted in HPI Comment: All other systems reviewed and negative ED Past Medical Hx - Past Medical History Hx Hypertension: Yes Hx Diabetes: Yes Hx Asthma: Yes Hx COPD: Yes - Social History Smoking Status: Never Smoker Substance Use Type: Alcohol - Medications Home Medications: Home Medications Medication Instructions Recorded Confirmed Last Taken Type Albuterol Sulfate [Ventolin HFA] 2 puff IH Q4H PRN #1 hfa.aer.ad 04/04/17 Unknown Rx Azithromycin [Zithromax TAB] 500 mg PO QDAY #5 tablet 04/07/17 Unknown Rx Insulin NPH/Regular [NovoLIN 70/30] 30 unit SQ BIDDIAB #2 vial 04/07/17 Unknown Rx Ipratropium/Albuterol Sulfate 1 ampul IH TIDRT #30 ampul.neb 04/07/17 Unknown Rx [DUONEB *Not for PRN Use*] amLODIPine [Norvasc] 10 mg PO DAILY #30 tab 04/07/17 Unknown Rx predniSONE [Deltasone] 50 mg PO QDAY #5 tab 04/07/17 Unknown Rx ALBUTEROL NEB's [Proventil 0.083% 2.5 mg IH TID PRN #20 neb 07/24/17 Unknown Rx NEBS] Minor Respiratory Exam - Exam General: Vital signs noted. No distress. Alert and acting appropriately. HEENT: No Pharyngeal Erythema, No Pharyngeal Exudates, No Moist Mucous Membranes , No Rhinorrhea, No Conjuctival Injection, No Frontal Tenderness, No Maxillary Tenderness Ear: Neither TM Bulge, Neither TM Erythema, Neither EAC Pain, Neither EAC Discharge Neck: Yes Supple, No Adenopathy Lungs: Yes Good Air Exchange, Yes Wheezes, No Ronchi, No Stridor, No Cough, No Labored Respirations, No Retractions, No Use of Accessory Muscles, No Other Abnormal Lung Sounds Heart: Yes Regular, No Murmur Abdomen: Yes Normal Bowel Sounds, No Tenderness, No Peritoneal Signs Skin: No Rash, No Edema Neurologic: Alert and oriented, no deficits. Musculoskeletal: Unremarkable. ED Course Vital Signs 07/24/17 07/24/17 07/24/17 15:37 17:36 17:48 Temperature 98.2 F Pulse Rate 89 89 Pulse Rate [ 95 H Posterior Bilateral Throughout] Respiratory 20 Rate Respiratory 20 Rate [Posterior Bilateral Throughout] Blood Pressure 188/108 188/108 O2 Sat by Pulse 95 Oximetry 07/24/17 18:28 Temperature Pulse Rate Pulse Rate [ 92 H Posterior Bilateral Throughout] Respiratory Rate Respiratory 20 Rate [Posterior Bilateral Throughout] Blood Pressure O2 Sat by Pulse Oximetry ED Medical Decision Making - Medical Decision Making After neb treatment patient's lungs are clear she is feeling much better be discharged home. Patient states her blood pressure medicine is in the pharmacy and she does not need a prescription for that however she does need a prescription for more albuterol solution Critical care attestation.: If time is entered above; I have spent that time in minutes in the direct care of this critically ill patient, excluding procedure time. ED Disposition Clinical Impression: Asthma exacerbation, Hypertensive urgency Disposition: DC-01 TO HOME OR SELFCARE Is pt being admited?: No Does the pt Need Aspirin: No Condition: Fair Instructions: Asthma (ED), Chronic Hypertension (ED) Prescriptions: ALBUTEROL NEB's [Proventil 0.083% NEBS] 2.5 mg IH TID PRN #20 neb PRN Reason: Wheezing Referrals: PRIMARY CARE, [Primary Care Provider] - 3-5 Days
[2017-07-24 19:13] VITALS: BP 112/65
== END 2017-07-24 19:13 | disposition home or self-care (01) ==
LOC: ED 15:34
DX: J45.901 Unspecified asthma with (acute) exacerbation (principal); I16.0 Hypertensive urgency; E11.9 Type 2 diabetes mellitus without complications; J44.9 Chronic obstructive pulmonary disease, unspecified; I10 Essential (primary) hypertension; Z79.4 Long term (current) use of insulin
CPT/HCPCS: 94640; 99283

== ENCOUNTER 2017-08-23 12:30 | Emergency (ER) | payer SELFPAY ==
[2017-08-23] MEDS ORDERED: PROVENTIL IH ONE (14:28)
[2017-08-23 14:31] VITALS: BP 166/99
--- NOTE | 2017-08-23 15:26 | Emergency Department Report ---
ED Asthma HPI - General Chief Complaint: Adult Asthma Stated Complaint: ASTHMA MEDS OUT Source: patient Mode of arrival: Ambulatory Limitations: No Limitations - History of Present Illness Initial Comments: This is a 46-year-old female nontoxic, well nourished in appearance, no acute signs of distress presents to the ED with c/o of asthma exacerbation x1 day. Patient stated she woke up this morning and developed this and patient stated she ran out of her medication of albuterol neb solution and needs refill. Patient denies any chest pain, shortness of breathe, fever, chills, headache, nausea, vomiting, back pain. Patient denies any allergies. PMH includes asthma, cOPD, and DM, and HTN. MD Complaint: "asthma attack", wheezing -: This morning Asthma History: childhood onset Severity: mild Context: none known Associated Symptoms: none - Related Data Current Asthma Therapy: inhaled bronchodilator Previous Rx's Medication Instructions Recorded Last Taken Type Albuterol Sulfate [Ventolin HFA] 2 puff IH Q4H PRN #1 hfa.aer.ad 04/04/17 Unknown Rx Azithromycin [Zithromax TAB] 500 mg PO QDAY #5 tablet 04/07/17 Unknown Rx Insulin NPH/Regular [NovoLIN 70/30] 30 unit SQ BIDDIAB #2 vial 04/07/17 Unknown Rx Ipratropium/Albuterol Sulfate 1 ampul IH TIDRT #30 ampul.neb 04/07/17 Unknown Rx [DUONEB *Not for PRN Use*] amLODIPine [Norvasc] 10 mg PO DAILY #30 tab 04/07/17 Unknown Rx predniSONE [Deltasone] 50 mg PO QDAY #5 tab 04/07/17 Unknown Rx ALBUTEROL NEB's [Proventil 0.083% 2.5 mg IH TID PRN #20 neb 07/24/17 Unknown Rx NEBS] ALBUTEROL Inhaler [ProAir HFA 2 puff IH QID PRN #1 inhalation 08/23/17 Unknown Rx Inhaler] ALBUTEROL NEB's [Proventil 0.083% 2.5 mg IH TID #30 ml 08/23/17 Unknown Rx NEBS] Prednisone [predniSONE 10 mg 10 mg PO .TAPER #1 tab.ds.pk 08/23/17 Unknown Rx (6-Day Pack, 21 Tabs)] Allergies Allergy/AdvReac Type Severity Reaction Status Date / Time No Known Allergies Allergy Verified 02/04/17 18:09 ED Review of Systems ROS: Stated complaint: ASTHMA MEDS OUT Other details as noted in HPI Constitutional: denies: chills, fever Eyes: denies: eye pain, eye discharge, vision change ENT: denies: ear pain, throat pain Respiratory: shortness of breath, wheezing. denies: cough Cardiovascular: denies: chest pain, palpitations Endocrine: no symptoms reported Gastrointestinal: denies: abdominal pain, nausea, diarrhea Genitourinary: denies: urgency, dysuria, discharge Musculoskeletal: denies: back pain, joint swelling, arthralgia Skin: denies: rash, lesions Neurological: denies: headache, weakness, paresthesias Psychiatric: denies: anxiety, depression Hematological/Lymphatic: denies: easy bleeding, easy bruising ED Past Medical Hx - Past Medical History Previous Medical History?: Yes Hx Hypertension: Yes Hx Diabetes: Yes Hx Asthma: Yes Hx COPD: Yes - Surgical History Past Surgical History?: No - Social History Smoking Status: Never Smoker - Medications Home Medications: Home Medications Medication Instructions Recorded Confirmed Last Taken Type Albuterol Sulfate [Ventolin HFA] 2 puff IH Q4H PRN #1 hfa.aer.ad 04/04/17 Unknown Rx Azithromycin [Zithromax TAB] 500 mg PO QDAY #5 tablet 04/07/17 Unknown Rx Insulin NPH/Regular [NovoLIN 70/30] 30 unit SQ BIDDIAB #2 vial 04/07/17 Unknown Rx Ipratropium/Albuterol Sulfate 1 ampul IH TIDRT #30 ampul.neb 04/07/17 Unknown Rx [DUONEB *Not for PRN Use*] amLODIPine [Norvasc] 10 mg PO DAILY #30 tab 04/07/17 Unknown Rx predniSONE [Deltasone] 50 mg PO QDAY #5 tab 04/07/17 Unknown Rx ALBUTEROL NEB's [Proventil 0.083% 2.5 mg IH TID PRN #20 neb 07/24/17 Unknown Rx NEBS] ALBUTEROL Inhaler [ProAir HFA 2 puff IH QID PRN #1 inhalation 08/23/17 Unknown Rx Inhaler] ALBUTEROL NEB's [Proventil 0.083% 2.5 mg IH TID #30 ml 08/23/17 Unknown Rx NEBS] Prednisone [predniSONE 10 mg 10 mg PO .TAPER #1 tab.ds.pk 08/23/17 Unknown Rx (6-Day Pack, 21 Tabs)] ED Physical Exam - General Limitations: No Limitations General appearance: alert, in no apparent distress - Head Head exam: Present: atraumatic, normocephalic - Eye Eye exam: Present: normal appearance Pupils: Present: normal accommodation - ENT ENT exam: Present: mucous membranes moist - Neck Neck exam: Present: normal inspection, full ROM - Respiratory Respiratory exam: Present: normal lung sounds bilaterally, wheezes (bilateral upper and lower lobes). Absent: respiratory distress, rales, rhonchi, stridor, chest wall tenderness, accessory muscle use, decreased breath sounds, prolonged expiratory - Cardiovascular Cardiovascular Exam: Present: regular rate, normal rhythm, normal heart sounds. Absent: irregular rhythm, systolic murmur, diastolic murmur, rubs, gallop - GI/Abdominal GI/Abdominal exam: Present: soft, normal bowel sounds. Absent: distended, tenderness, guarding, rebound, rigid, diminished bowel sounds - Extremities Exam Extremities exam: Present: normal inspection - Back Exam Back exam: Present: normal inspection - Neurological Exam Neurological exam: Present: alert, oriented X3 - Psychiatric Psychiatric exam: Present: normal affect, normal mood - Skin Skin exam: Present: warm, dry, intact, normal color. Absent: rash ED Course Vital Signs 08/23/17 14:29 Temperature 98.9 F Pulse Rate 91 H Respiratory 16 Rate Blood Pressure 166/99 O2 Sat by Pulse 95 Oximetry - Reevaluation(s) Reevaluation #1: 08/23/17 16:13 Patient is speaking in full sentences with no signs of distress noted. ED Medical Decision Making - Medical Decision Making This is a 46-year-old female that presents with asthma exacerbation. Patient is stable and was examined by me. Patient refused a chest x-ray as she stated she is here just to get medication refill. Patient is requested for nebulizer albuterol for her machine. Patient states she was a sign AMA even though I educated patient on my concerns and further evaluation. Patient did receive albuterol neb 1 treatment and sodium Medrol in the ED and post assessment there is no wheezing and wheezing subsided. Patient states she feels much better. At time of signing AMA, the patient does not seem toxic or ill in appearance. No acute signs of distress noted. Patient agrees to treatment plan of care. No further questions noted by the patient. Critical care attestation.: If time is entered above; I have spent that time in minutes in the direct care of this critically ill patient, excluding procedure time. ED Disposition Clinical Impression: Asthma exacerbation Qualifiers: Asthma severity: mild Asthma persistence: unspecified Qualified Code(s): J45.901 - Unspecified asthma with (acute) exacerbation Disposition: DC- LEFT AGAINST MED ADVICE Is pt being admited?: No Does the pt Need Aspirin: No Condition: Stable Instructions: Asthma (ED) Additional Instructions: Follow-up with a primary care doctor in 3-5 days or if symptoms worsen and continue return to emergency room as soon as possible. Prescriptions: ALBUTEROL Inhaler [ProAir HFA Inhaler] 2 puff IH QID PRN #1 inhalation PRN Reason: Shortness Of Breath ALBUTEROL NEB's [Proventil 0.083% NEBS] 2.5 mg IH TID #30 ml Prednisone [predniSONE 10 mg (6-Day Pack, 21 Tabs)] 10 mg PO .TAPER #1 tab.ds.pk Referrals: PRIMARY CARE, [Primary Care Provider] - 3-5 Days JAMEE BENTLEY MD [Staff Physician] - 3-[address] [facility] [Outside] - 3-5 Days [facility] [Outside] - 3-5 Days Forms: Work/School Release Form(ED), AMA Form
== END 2017-08-23 16:29 | disposition left against medical advice (07) ==
LOC: ED 12:30
DX: J45.901 Unspecified asthma with (acute) exacerbation (principal); J44.9 Chronic obstructive pulmonary disease, unspecified; I10 Essential (primary) hypertension; E11.9 Type 2 diabetes mellitus without complications
CPT/HCPCS: 94640; 96372; 99282; J2930

== ENCOUNTER 2017-09-14 11:54 | Emergency (ER) | payer OTHER ==
[2017-09-14 12:09] VITALS: BP 123/75
--- NOTE | 2017-09-14 13:08 | Emergency Department Report ---
ED Recheck HPI - General Chief Complaint: Medical Clearance Stated Complaint: MEDICATION REFILL Time Seen by Provider: 09/14/17 13:08 Source: patient Mode of arrival: Ambulatory Limitations: No Limitations - Related Data Previous Rx's Medication Instructions Recorded Last Taken Type Albuterol Sulfate [Ventolin HFA] 2 puff IH Q4H PRN #1 hfa.aer.ad 04/04/17 Unknown Rx Azithromycin [Zithromax TAB] 500 mg PO QDAY #5 tablet 04/07/17 Unknown Rx Insulin NPH/Regular [NovoLIN 70/30] 30 unit SQ BIDDIAB #2 vial 04/07/17 Unknown Rx Ipratropium/Albuterol Sulfate 1 ampul IH TIDRT #30 ampul.neb 04/07/17 Unknown Rx [DUONEB *Not for PRN Use*] amLODIPine [Norvasc] 10 mg PO DAILY #30 tab 04/07/17 Unknown Rx predniSONE [Deltasone] 50 mg PO QDAY #5 tab 04/07/17 Unknown Rx ALBUTEROL NEB's [Proventil 0.083% 2.5 mg IH TID PRN #20 neb 07/24/17 Unknown Rx NEBS] ALBUTEROL Inhaler [ProAir HFA 2 puff IH QID PRN #1 inhalation 08/23/17 Unknown Rx Inhaler] ALBUTEROL NEB's [Proventil 0.083% 2.5 mg IH TID #30 ml 08/23/17 Unknown Rx NEBS] Prednisone [predniSONE 10 mg 10 mg PO .TAPER #1 tab.ds.pk 08/23/17 Unknown Rx (6-Day Pack, 21 Tabs)] Allergies Allergy/AdvReac Type Severity Reaction Status Date / Time No Known Allergies Allergy Verified 02/04/17 18:09 ED Review of Systems ROS: Stated complaint: MEDICATION REFILL Other details as noted in HPI ED Past Medical Hx - Past Medical History Previous Medical History?: Yes Hx Hypertension: Yes Hx Diabetes: Yes Hx Asthma: Yes Hx COPD: Yes - Surgical History Past Surgical History?: No - Social History Smoking Status: Never Smoker Substance Use Type: Alcohol - Medications Home Medications: Home Medications Medication Instructions Recorded Confirmed Last Taken Type Albuterol Sulfate [Ventolin HFA] 2 puff IH Q4H PRN #1 hfa.aer.ad 04/04/17 Unknown Rx Azithromycin [Zithromax TAB] 500 mg PO QDAY #5 tablet 04/07/17 Unknown Rx Insulin NPH/Regular [NovoLIN 70/30] 30 unit SQ BIDDIAB #2 vial 04/07/17 Unknown Rx Ipratropium/Albuterol Sulfate 1 ampul IH TIDRT #30 ampul.neb 04/07/17 Unknown Rx [DUONEB *Not for PRN Use*] amLODIPine [Norvasc] 10 mg PO DAILY #30 tab 04/07/17 Unknown Rx predniSONE [Deltasone] 50 mg PO QDAY #5 tab 04/07/17 Unknown Rx ALBUTEROL NEB's [Proventil 0.083% 2.5 mg IH TID PRN #20 neb 07/24/17 Unknown Rx NEBS] ALBUTEROL Inhaler [ProAir HFA 2 puff IH QID PRN #1 inhalation 08/23/17 Unknown Rx Inhaler] ALBUTEROL NEB's [Proventil 0.083% 2.5 mg IH TID #30 ml 08/23/17 Unknown Rx NEBS] Prednisone [predniSONE 10 mg 10 mg PO .TAPER #1 tab.ds.pk 08/23/17 Unknown Rx (6-Day Pack, 21 Tabs)] ED Physical Exam - General Limitations: No Limitations ED Course Vital Signs 09/14/17 12:05 Temperature 98.2 F Pulse Rate 90 Respiratory 20 Rate Blood Pressure 123/75 O2 Sat by Pulse 98 Oximetry Critical care attestation.: If time is entered above; I have spent that time in minutes in the direct care of this critically ill patient, excluding procedure time. ED Disposition Condition: Stable Referrals: PRIMARY CARE, [Primary Care Provider] - 3-5 Days
--- NOTE | 2017-09-14 13:19 | Emergency Department Report ---
Chief Complaint: Medical Clearance Stated Complaint: MEDICATION REFILL Time Seen by Provider: 09/14/17 13:08 - HPI History of Present Illness: This is a 46-year-old female nontoxic, well nourished in appearance, no acute signs of distress presents to the ED albuterol medication refill. Patient denies any symptoms. Patient stated she just wants a refill of her albuterol inhaler. Patient denies any chest pain, shortness of breath, fever, chills, nausea, vomiting, headache or stiff neck. Patient denies any allergies. - Exam Vital Signs: Vital Signs 09/14/17 12:05 Temperature 98.2 F Pulse Rate 90 Respiratory 20 Rate Blood Pressure 123/75 O2 Sat by Pulse 98 Oximetry Physical Exam: GENERAL: The patient is a well-developed, well-nourished in no apparent distress. Patient is alert and acting appropriately for age. Alert and oriented 3, no apparent distress, normal gait, atraumatic. LUNGS: Clear to auscultation. Non labor breathing. No intercostal retractions. Symmetrical with respiration, no wheezing, no rales, or crackles. HEART: Regular rate and rhythm without murmur, rubs or gallops. No reproducible. S1, S2 present, regular rate and rhythm without murmur, no rubs, no gallops. MSE screening note: Focused history and physical exam performed. Due to findings the following was ordered: Patient is here for non-medical emergency. Patient was discussed with Dr. Urrutia and stated non-medical emergency. Patient is asymptomatic. When the quotation clerk approached patient about a co-pay patient refused and left. Patient discussed with doctor:: ELDER URRUTIA (MSE) ED Disposition for MSE Clinical Impression: Medication refill Disposition: MED SCREENING EXAM-LEFT Is pt being admited?: No Condition: Stable Referrals: PRIMARY CARE, [Primary Care Provider] - 3-5 Days
== END 2017-09-14 13:35 | disposition left against medical advice (07) ==
LOC: ED 11:54
DX: Z76.0 Encounter for issue of repeat prescription (principal)
CPT/HCPCS: 99282